=== PATIENT | male | born 1945 | race Caucasian/White ===

== ENCOUNTER → 2018-10-16 | Outpatient (CLI) | payer MEDICARE ==
[~2018-10-16] MED LIST: ACET-1966 PO; CEF300 PO; GUAI600T57 PO; IPRA4AER IH; MULT-1379 PO
== END ==
LOC: AMB 20:44
PROVIDERS: ATTEND Nurse Practitioner
DX: R41.82 Altered mental status, unspecified (principal); R07.9 Chest pain, unspecified; R05 Cough; R09.02 Hypoxemia; R53.1 Weakness
CPT/HCPCS: A0425; A0427

== ENCOUNTER 2018-10-21 13:20 | Inpatient (IN) | payer MEDICARE ==
[2018-10-21] MEDS ORDERED: MAG HYD/AL HYD/SIMETH 30ML UDC PO PRN (14:20)
[2018-10-21] MEDS ORDERED: ALBUTEROL 2.5 MG/3 ML NEB NEB PRN (18:15)
[2018-10-21] MEDS ORDERED: ACETAMINOPHEN 325 MG TAB PO PRN (18:15)
[2018-10-21] MEDS: COMBIVENT 4 GR INHALER IH SCH (18:30)
--- NOTE | 2018-10-21 19:52 | BHS - Psychiatric Evaluation ---
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 His head CT was WNL and he is no longer septic. He knows where he is and the date, but gives bizarre answers to questions, is tangential, is a poor historian, perseverates on biblical concepts and past experiences. He scored a 10/30 on the [facility] evaluation by with widespread cognitive linguistic deficits in the areas of attention, immediate memory, short-term memory, working memory, executive function, language and visuospatial skills. Disposition is complicated by the fact that he is homeless. 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 We have discussed with Dr. Crespo about the patient. He will be transferred to [facility] for continued care. " Admit due to SI or Attempt: No Suicide Plan: No Plan Alcohol or Drugs Involved: No Is Patient Info Reliable: No Is Collateral Info Reliable: Yes (3-81) Current Home Psych Meds: None at this time. Mental Status Exam General Appearance: Good Eye Contact, Unkept Speech: Rambling Mood: Euthymic Affect: Full and Appropriate Thought Process: Loose Associations Thought Content: Ideas of Reference (Believes his religiousity is the highest and most devout.) Cognition: Alert & Oriented-Person Memory: Immediate Insight Judgment: Poor Sleep: Normal Hallucinations: Denies Delusions: Grandiose (Aggrandizing), Ideas of reference Current Risk & History Current Dangerous Risk Assessm: Ubable to Care for Self Past Dangerous Risk Assessm: Other (None indicated at this time) Previous Suicide Attempt: No Previous Attempt (Denies) Previous Psychiatric Illness: Yes ([facility] physician believes patient may have been a baseline schizophrenic) Previous Psychiatric Treatment: Yes (Likely) Risk Assessment & Disposition Evaluated Risk Assessment: Patient is in need of full evaluation, and likely of stabilization to baseline. His thoughts are tangential and he makes irrelevant conversation. He seems to have little concern for his current state. He also seems to enjoy the social milieu of the unit. His speech is preoccupied with taoism and grandiose themes. He does not identify to this examiner a friend or family member who could attest to his level of independent function. He is transferred from the med/surg floor where his greater medical needs were addressed. Impression: Primary Impression: Altered mental status Meets Mental Illness Req.: Yes Meets Dangerousness Req.: Yes Emergency Mcfp to be: Upheld Decision Comment: Patient is homeless, unable to care for himself, and not connected with important resources like outpatient treatment. Date of Decision: Oct 21, 2018 Time of Decision: 19:52 Patient is Medically Stable at: Yes Disposition: [facility] Oct 21, 2018 19:52
[2018-10-21] MEDS ORDERED: guaiFENesin 600 MG TABCR PO SCH (21:00)
[2018-10-21] MEDS ORDERED: [UNRECOGNIZED DRUG - OTHER] TP SCH (21:00)
[2018-10-21] MEDS ORDERED: CEFDINIR 300 MG CAP PO SCH (21:00)
[2018-10-21] MEDS: CEFDINIR 300 MG CAP PO SCH (21:48)
[2018-10-21] MEDS: [UNRECOGNIZED DRUG - OTHER] TP SCH (21:48)
[2018-10-21] MEDS: guaiFENesin 600 MG TABCR PO SCH (21:48)
[2018-10-22] MEDS: COMBIVENT 4 GR INHALER IH SCH ×4 (05:42→18:20)
[2018-10-22 05:52] VITALS: BP 128/78
[2018-10-22] MEDS: guaiFENesin 600 MG TABCR PO SCH ×2 (08:48→22:03)
[2018-10-22] MEDS: CEFDINIR 300 MG CAP PO SCH ×2 (08:48→22:03)
[2018-10-22] MEDS: MULTIVITAMINS PO SCH (08:48)
[2018-10-22] MEDS: predniSONE 20 MG TAB PO SCH (08:48)
[2018-10-22] MEDS: [UNRECOGNIZED DRUG - OTHER] TP SCH (08:49)
[2018-10-22 10:00] VITALS: BP 140/70
[2018-10-22 14:05] VITALS: BP 124/72
[2018-10-22 20:09] VITALS: BP 124/70
[2018-10-23] MEDS: COMBIVENT 4 GR INHALER IH SCH ×4 (05:55→18:03)
[2018-10-23 06:18] VITALS: BP 133/79
[2018-10-23 08:10] VITALS: BP 118/74
[2018-10-23] MEDS: predniSONE 20 MG TAB PO SCH (08:47)
[2018-10-23] MEDS: guaiFENesin 600 MG TABCR PO SCH ×2 (08:47→21:53)
[2018-10-23] MEDS: MULTIVITAMINS PO SCH (08:47)
[2018-10-23] MEDS: CEFDINIR 300 MG CAP PO SCH ×2 (08:47→21:54)
--- NOTE | 2018-10-23 10:00 | Antimicrobial Stewardship ---
Antimicrobial Stewardship Comment See Antimicrobial Stewardship Note done on 10/17/18 on [id number] number. JUDY MENDOZA Oct 23, 2018 10:00
--- NOTE | 2018-10-23 11:50 | BHS Progress Note ---
S - Subjective Progress Notes Subjective Patient remains very polite on the unit, demonstrating an intact memory, remembering this patients first name from the day before, and accurately reporting recent interaction with nurse. Patient enjoys communicating with staff and re-canting past events in his life. Patient is tangential in co nversation, appetite and sleep good. No other concerns today. Likely grandiose delusional content ongoing. Patient does not want any psychiatric medications. Patient continues to recover from recent sepsis, prednisone tapering down. Patient in need of adequate housing and [place] living arrangement. Suicidal Ideation: None Homicidal Ideation: None [facility] - Objective Physical Exam Vital Signs Vital Signs Date Time Temp Pulse Resp B/P (MAP) Pulse Ox O2 Delivery O2 Flow Rate FiO2 10/23/18 06:18 97.0 91 133/79 (97) Nasal Cannula 4.0 70 10/22/18 14:05 18 94 Muscle Strength and Tone: WNL (improving) Gait and Station: Steady, Unsteady S Medications Reviewed: Side Effects, Benefits of Medication, Risks Allergies Reviewed: Yes Mental Status Exam General Appearance: Casual, Good Eye Contact, Cooperative, Polite, Good Interaction, Unkept; No Psychomotor Agitation, No Psychomotor Retardation, No Bizarre Mannerisms, No Tics Speech: Clear, Spontaneous, Normal Rate, Normal Rhythm, Normal Volume, Normal Tone, Rambling (less so today, remains tangential ) Mood: Euthymic Affect: Full and Appropriate, Calm; No Flat, No Withdrawn, No Tearful, No Anxious, No Agitated Thought Process: Goal Directed; No Loose Associations (tangential ), No Flight of Ideas Thought Content: No Suicidal Ideation, No Homicidal Ideation; Delusions (speaks of a religion woman, and recent rescue of infant, likely delsuional ); No Auditory Halllucinations, No Visual Hallucinations, No Thought Broadcasting; Ideas of Reference (Believes his religiousity is the highest and most devout.); No Obsessions, No Compulsions Sensorium: Clear Cognition: Alert & Oriented-Person, Alert & Oriented-Place, Alert & Oriented- Time, Gktlc-Xytxukeo-Nviuafsny (mostly) Memory: Immediate, Recent, Remote Intelligence: Average Insight Judgment: Poor (limited currently but improving as infection clears) [facility] Assessment and Plan Wptt-ex-Omfv Encounter Date: Oct 23, 2018 Pvtc-ox-Juyf Encounter Time: 11:00 [facility] Plan: Necessary Precautions Tobacco Medications: Started Multpiple Antipsychotics Used: No Problems: (1) Delusional disorder, grandiose type Optional Permanent Comment: grandiose themes, recovering from sepsis and prednisone, and hypoxic, potential implications from Last Edited By: Rick Sheppard on Oct 23, 2018 11:49 Status: Chronic (2) Personality disorder, unspecified Optional Permanent Comment: likely narcissistic and antisocial traits that are long standing. Last Edited By: Rick Sheppard on Oct 23, 2018 11:48 Status: Chronic Condition 1. continue treatment. 2. look for placement RICK SHEPPARD MD Oct 23, 2018 11:49
[2018-10-23 12:35] VITALS: BP 132/74
[2018-10-23 15:10] VITALS: BP 118/72
[2018-10-23 22:29] VITALS: BP 112/83
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
[2018-10-24 04:02] VITALS: BP 129/81
[2018-10-24] MEDS: COMBIVENT 4 GR INHALER IH SCH ×4 (06:01→17:26)
[2018-10-24 07:19] LABS: PLATELET COUNT, AUTOMATED 157 K/uL (150-450)
[2018-10-24] MEDS: predniSONE 10 MG TAB PO SCH (08:37)
[2018-10-24] MEDS: MULTIVITAMINS PO SCH (08:37)
[2018-10-24] MEDS: CEFDINIR 300 MG CAP PO SCH ×2 (08:37→22:06)
[2018-10-24] MEDS: guaiFENesin 600 MG TABCR PO SCH ×2 (08:37→22:06)
--- NOTE | 2018-10-24 10:18 | BHS Progress Note ---
BHS - Subjective Progress Notes Subjective Patient interacting well on the unit and respectful of care he is receiving here. Emergency custodial will be expiring tomorrow, and patient will be given the opportunity to sign in voluntarily to shore up effective discharge plan, as patient continues to state he wants to live in [place]. Patient may be suffe ring form some grandiosity and associated delusions, however patients current state does not represent a need of continued mental health hold. Mood stated okay, appetite good, sleep good, Suicidal Ideation: None Homicidal Ideation: None [facility] - Objective Physical Exam Vital Signs Vital Signs Date Time Temp Pulse Resp B/P (MAP) Pulse Ox O2 Delivery O2 Flow Rate FiO2 10/24/18 04:02 129/81 (97) 10/24/18 03:59 98.0 69 16 90 Non-Rebreather 3.0 Hematology Test 10/24/18 07:10 Red Blood Count 4.67 M/uL (4.00-5.60) Mean Corpuscular Volume 95.2 fL (80.0-96.0) Mean Corpuscular Hemoglobin 31.5 pg (26.0-33.0) Mean Corpuscular Hemoglobin Concent 33.1 g/dL (32.0-36.0) Red Cell Distribution Width 14.1 % (11.5-14.5) Mean Platelet Volume 9.7 fL (7.2-11.1) Neutrophils (%) (Auto) 69.8 % (39.4-72.5) Lymphocytes (%) (Auto) 19.6 % (17.6-49.6) Monocytes (%) (Auto) 8.0 % (4.1-12.4) Eosinophils (%) (Auto) 2.0 % (0.4-6.7) Basophils (%) (Auto) 0.6 % (0.3-1.4) Nucleated RBC Relative Count (auto) 0.0 /100WBC Neutrophils # (Auto) 8.2 K/uL (2.0-7.4) Lymphocytes # (Auto) 2.3 K/uL (1.3-3.6) Monocytes # (Auto) 0.9 K/uL (0.3-1.0) Eosinophils # (Auto) 0.2 K/uL (0.0-0.5) Basophils # (Auto) 0.1 K/uL (0.0-0.1) Nucleated RBC Absolute Count (auto) 0.00 K/uL Sodium Level 142 mmol/L (137-145) Potassium Level 3.9 mmol/L (3.5-5.0) Chloride Level 106 mmol/L (98-107) Carbon Dioxide Level 26 mmol/L (22-30) Blood Urea Nitrogen 19 mg/dl (9-21) Creatinine 0.70 mg/dl (0.66-1.25) Glomerular Filtration Rate Calc > 60.0 Random Glucose 93 mg/dl (75-110) Calcium Level 8.9 mg/dl (8.4-10.2) Magnesium Level 2.1 mg/dl (1.7-2.2) Total Bilirubin 0.6 mg/dl (0.2-1.3) Aspartate Amino Transf (AST/SGOT) 17 U/L (0-35) Alanine Aminotransferase (ALT/SGPT) 41 U/L (0-56) Alkaline Phosphatase 56 U/L (0-126) Total Protein 5.9 g/dl (6.3-8.2) Albumin 3.4 g/dl (3.5-5.0) Chemistry Test 10/24/18 07:10 White Blood Count 11.7 k/uL (4.5-11.0) Red Blood Count 4.67 M/uL (4.00-5.60) Hemoglobin 14.7 g/dL (14.0-18.0) Hematocrit 44.4 % (42.0-52.0) Mean Corpuscular Volume 95.2 fL (80.0-96.0) Mean Corpuscular Hemoglobin 31.5 pg (26.0-33.0) Mean Corpuscular Hemoglobin Concent 33.1 g/dL (32.0-36.0) Red Cell Distribution Width 14.1 % (11.5-14.5) Platelet Count 157 K/uL (150-450) Mean Platelet Volume 9.7 fL (7.2-11.1) Neutrophils (%) (Auto) 69.8 % (39.4-72.5) Lymphocytes (%) (Auto) 19.6 % (17.6-49.6) Monocytes (%) (Auto) 8.0 % (4.1-12.4) Eosinophils (%) (Auto) 2.0 % (0.4-6.7) Basophils (%) (Auto) 0.6 % (0.3-1.4) Nucleated RBC Relative Count (auto) 0.0 /100WBC Neutrophils # (Auto) 8.2 K/uL (2.0-7.4) Lymphocytes # (Auto) 2.3 K/uL (1.3-3.6) Monocytes # (Auto) 0.9 K/uL (0.3-1.0) Eosinophils # (Auto) 0.2 K/uL (0.0-0.5) Basophils # (Auto) 0.1 K/uL (0.0-0.1) Nucleated RBC Absolute Count (auto) 0.00 K/uL Glomerular Filtration Rate Calc > 60.0 Calcium Level 8.9 mg/dl (8.4-10.2) Magnesium Level 2.1 mg/dl (1.7-2.2) Total Bilirubin 0.6 mg/dl (0.2-1.3) Aspartate Amino Transf (AST/SGOT) 17 U/L (0-35) Alanine Aminotransferase (ALT/SGPT) 41 U/L (0-56) Alkaline Phosphatase 56 U/L (0-126) Total Protein 5.9 g/dl (6.3-8.2) Albumin 3.4 g/dl (3.5-5.0) Muscle Strength and Tone: WNL (improving) Gait and Station: Steady, Unsteady S Medications Reviewed: Side Effects, Benefits of Medication, Risks Allergies Reviewed: Yes Mental Status Exam General Appearance: Casual, Good Eye Contact, Cooperative, Polite, Good Interaction, Unkept; No Psychomotor Agitation, No Psychomotor Retardation, No Bizarre Mannerisms, No Tics Speech: Clear, Spontaneous, Normal Rate, Normal Rhythm, Normal Volume, Normal Tone, Rambling (less so today, remains tangential ) Mood: Euthymic Affect: Full and Appropriate, Calm; No Flat, No Withdrawn, No Tearful, No Anxious, No Agitated Thought Process: Goal Directed; No Loose Associations (tangential ), No Flight of Ideas Thought Content: No Suicidal Ideation, No Homicidal Ideation; Delusions (speaks of a yazidi woman, and recent rescue of infant, likely delsuional ); No Auditory Halllucinations, No Visual Hallucinations, No Thought Broadcasting; Ideas of Reference (Believes his religiousity is the highest and most devout.); No Obsessions, No Compulsions Sensorium: Clear Cognition: Alert & Oriented-Person, Alert & Oriented-Place, Alert & Oriented- Time, Crvvn-Kretiywc-Vsemmmhgh (mostly) Memory: Immediate, Recent, Remote Intelligence: Average Insight Judgment: Poor (limited currently but improving as infection clears) Result Diagram: 10/24/18 0710 10/24/18 0710 [facility] Assessment and Plan Svis-us-Puxu Encounter Date: Oct 24, 2018 Fqhn-ij-Gone Encounter Time: 09:00 [facility] Plan: Necessary Precautions Tobacco Medications: Started Multpiple Antipsychotics Used: No Problems: (1) Delusional disorder, grandiose type Optional Permanent Comment: grandiose themes, recovering from sepsis and prednisone, and hypoxic, potential implications from Last Edited By: Rick Sheppard on Oct 23, 2018 11:49 Status: Chronic (2) Personality disorder, unspecified Optional Permanent Comment: likely narcissistic and antisocial traits that are long standing. Last Edited By: Rick Sheppard on Oct 23, 2018 11:48 Status: Chronic Condition 1. continue to look for safe placement upon discharge. 2. patient will sign in voluntarily. 3. no medication changes, RICK SHEPPARD MD Oct 24, 2018 10:17
[2018-10-24 14:05] VITALS: BP 136/78
[2018-10-25 04:45] VITALS: BP 116/67
[2018-10-25] MEDS: COMBIVENT 4 GR INHALER IH SCH ×2 (05:50→09:45)
[2018-10-25] MEDS: guaiFENesin 600 MG TABCR PO SCH (08:06)
[2018-10-25] MEDS: CEFDINIR 300 MG CAP PO SCH (08:06)
[2018-10-25] MEDS: MULTIVITAMINS PO SCH (08:06)
[2018-10-25] MEDS: predniSONE 10 MG TAB PO SCH (08:06)
[2018-10-25] MEDS ORDERED: IPRA4AER IH (10:07)
[2018-10-25] MEDS ORDERED: GUAI600T57 PO (10:08)
[2018-10-25] MEDS ORDERED: CEF300 PO (10:09)
[2018-10-25] MEDS ORDERED: MULT-1379 PO (10:09)
[2018-10-25] MEDS ORDERED: ACET-1966 PO (10:11)
[2018-10-25] MEDS ORDERED: CEFDINIR 300 MG CAP PO SCH ×2 (21:00)
--- NOTE | 2018-10-26 23:36 | SCHAAF DISCHARGE ---
DATE OF ADMISSION: October 21, 2018 DATE OF DISCHARGE: October 25, 2018 ATTENDING PHYSICIAN Eduardo Crespo MD Patient was seen at approximately 0900 hours on 25 October 2018 for note concerning this dictation. FINAL DIAGNOSES 1. Personality disorder, unspecified. antisocial and narcissistic traits. 2. Rule out delusional disorder, grandiose type. 3. Patient recovering from recent pneumonia and sepsis and hypoxic condition. REASON FOR ADMISSION This is a 73-year-old male who was initially admitted to the medical floor and found to be altered mental status, pneumonia, and sepsis. Patient was treated from October 17 through October 21 there. He is a [facility] resident and homeless in [place]. Patient was then brought over under an emergency detainment, as altered mental status had not yet cleared, and patient continued to recover from medical concerns. Patient was brought to the Behavioral Health Unit on October 21 and discharged on October 25. Patient continued to improve, patient being overall logical, continued to gain strength. No gross psychotic features were seen, and patient was agreeable to discharging to [place]. Patient could live in a hotel there or visit a homeless correction. Patient did have some money as well, and patient would follow up in a warmer climate with lower elevation as well. PHYSICAL EXAMINATION Please see medical floor notes. Vital signs at the time of discharge from [facility]: Temperature 97.8, pulse 66, respiratory rate 15, blood pressure 116/67, and pulse oximetry 91% on nasal cannula at 3L. LABORATORY DATA CBC on 10/24/18 notable for white blood cells elevated at 11.7. CMP unremarkable. For other laboratory data, see electronic record. MENTAL STATUS EXAMINATION AT TIME OF DISCHARGE GENERAL APPEARANCE, BEHAVIOR AND ATTITUDE: This is an adequately groomed 73]-year-old male who looks about stated age. Patient interacting well with this provider and other treatment team staff, smiling at times. No psychomotor agitation or retardation. No bizarre mannerisms or tics. SPEECH: Within normal limits. Regular rate, rhythm, volume and tone. MOOD: Described as good. . AFFECT: Full and bright. THOUGHT PROCESSES: Logical and goal-directed, no loose associations or flight of ideas. THOUGHT CONTENT: Free of auditory or visual hallucinations, ideas of reference, thought broadcastings, delusions, obsessions or compulsions. Patient adamantly denying suicidal or homicidal ideation. SENSORIUM: Clear. COGNITION: Alert and oriented to person, place, time and situation. MEMORY: Immediate, recent and remote was estimated intact. INTELLIGENCE: Average, based on interview. INSIGHT AND JUDGMENT: Considered grossly intact and appropriate for outpatient management. RESULTS OF TESTING Imaging: See electronic record. Laboratory data: See above. CONSULTATIONS None. TREATMENT Patient received minimal medications and participated in individual and group therapy. HOSPITAL COURSE Overall, patient was pleasant and cooperative throughout his stay, noted to be very talkative in nature and liked to interact with others. Patient interacting in a seemingly grandiose manner; however, accepting of likelihood that person of interest that patient is pursuing in [place] does not live here. Patient agreed to go to [place] to follow up closely there with providers. CONDITION OF PATIENT ON DISCHARGE Stable. Considered a minimal risk to himself or others, and appropriate for outpatient care. DISPOSITION The patient was discharged to [place], where homeless correction exists. Patient had a bus ticket there. Patient would follow up with [facility] there. Avoid nicotine, alcohol, and illicit substances. Patient was given a three-day supply of medications, which included Omnicef, and five doses would be given before discontinuing, 300 mg twice a day. Patient could take [id number] Tylenol, multivitamin with minerals as needed, Mucinex as needed, and Combivent Respimat inhaled spray was given as well. Patient will remain on the nasal cannula oxygen at 3L currently at time of discharge. Risks, benefits, and alternatives of above discharge plan were discussed. Informed consent was obtained given to proceed with above discharge plan by this competent patient. COURTNEY
== END 2018-10-25 13:29 | disposition home or self-care (01) | DRG 883 ==
LOC: BHS 13:20
PROVIDERS: ADMIT Psychiatry & Neurology Psychiatry; ATTEND Psychiatry & Neurology Psychiatry
DX: F60.9 Personality disorder, unspecified (principal); F60.81 Narcissistic personality disorder; F22 Delusional disorders; Z72.811 Adult antisocial behavior; Z59.0 Homelessness
CPT/HCPCS: 36415; 82040; 82247; 82310; 82374; 82435; 82565; 82947; 83735; 84075; 84132; 84155; 84295; 84450; 84460; 84520; 85025; 94640; J3535; J7512

== ENCOUNTER 2019-02-20 11:18 | Emergency (ER) | payer MEDICARE ==
--- NOTE | 2019-02-20 11:23 | ER Report ---
History and Physical Time Seen By MD: 11:23 HPI/ROS CHIEF COMPLAINT: Left arm pain HISTORY OF PRESENT ILLNESS: Patient is a 73-year-old male who presents with a complaint of left arm pain. He states there is no traumatic injury. 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 He states the pain radiates from the shoulder to the wrist does not involve any of the fingers. Occasionally it will go numb. Patient was found to be 84% on room air. He does have a history of COPD and is supposed to be wearing oxygen. He denies any chest pain or fever or chills. He denies abdominal pain. REVIEW OF SYSTEMS: Respiratory: Cough, reports no dyspnea Cardiovascular: No chest pain, no palpitations. Gastrointestinal: No vomiting, no abdominal pain. Musculoskeletal: Left arm pain Allergies: Coded Allergies: No Known Drug Allergies (Unverified , 10/17/18) Home Meds Active Scripts Naproxen (NAPROXEN) 375 Mg Tablet, 375 MG PO TID for PAIN, #30 TAB 0 Refills Prov:ABISAI COLLINS MD 02/20/19 Discontinued Reported Medications Acetaminophen (TYLENOL) 325 Mg Tablet, 650 MG PO Q6H PRN for PAIN, TAB 10/25/18 Multivits,Th W-Fe,Other Min (THERA-M) 1 Each Tablet, 1 EACH PO QDAY 10/25/18 Cefdinir 300 Mg Cap (OMNICEF 300 MG CAP (OR EQUIV)) 300 Mg Cap, 300 MG PO BID, CAP TAKE UNTIL GONE 10/25/18 Guaifenesin (MUCINEX) 600 Mg Tablet.er, 600 MG PO BID 10/25/18 Ipratropium/Albuterol Sulfate (COMBIVENT RESPIMAT INHAL SPRAY) 4 Gm Aer.w.adap, 1 PUFF IH QID 10/25/18 Past Medical/Surgical History Past mental history for recent psychiatric admission in October 2018 for altered mental status also history of prior medical admission for sepsis and pneumonia. Hx Smoking: Yes Smoking Status: Former Smoker Exposure to Second Hand Smoke?: Yes Hx Alcohol Use: Yes Constitutional Physical Exam General Appearance: The patient is alert, has no immediate need for airway protection and no current signs of toxicity. Eyes: Pupils equal and round no injection. Respiratory: Chest is non-tender, lungs with bilateral rhonchi and wheezes. Cardiac: regular rate and rhythm [ ] Gastrointestinal: Abdomen is soft and non tender, no masses, bowel sounds normal. Musculoskeletal: Neck: Neck is supple and non tender. Extremities have full range of motion and are non tender. Skin: No rashes or lesions. [ ] Medical Decision Making Data Points Laboratory Hematology Test 02/20/19 11:57 Red Blood Count 5.05 M/uL (4.00-5.60) Mean Corpuscular Volume 91.9 fL (80.0-96.0) Mean Corpuscular Hemoglobin 30.3 pg (26.0-33.0) Mean Corpuscular Hemoglobin Concent 33.0 g/dL (32.0-36.0) Red Cell Distribution Width 14.7 % (11.5-14.5) Mean Platelet Volume 9.4 fL (7.2-11.1) Neutrophils (%) (Auto) 79.9 % (39.4-72.5) Lymphocytes (%) (Auto) 10.1 % (17.6-49.6) Monocytes (%) (Auto) 7.3 % (4.1-12.4) Eosinophils (%) (Auto) 1.7 % (0.4-6.7) Basophils (%) (Auto) 1.0 % (0.3-1.4) Nucleated RBC Relative Count (auto) 0.1 /100WBC Neutrophils # (Auto) 8.1 K/uL (2.0-7.4) Lymphocytes # (Auto) 1.0 K/uL (1.3-3.6) Monocytes # (Auto) 0.7 K/uL (0.3-1.0) Eosinophils # (Auto) 0.2 K/uL (0.0-0.5) Basophils # (Auto) 0.1 K/uL (0.0-0.1) Nucleated RBC Absolute Count (auto) 0.01 K/uL Sodium Level 137 mmol/L (137-145) Potassium Level 4.1 mmol/L (3.5-5.0) Chloride Level 102 mmol/L (98-107) Carbon Dioxide Level 27 mmol/L (22-30) Blood Urea Nitrogen 14 mg/dl (9-21) Creatinine 0.90 mg/dl (0.66-1.25) Glomerular Filtration Rate Calc > 60.0 Random Glucose 98 mg/dl (75-110) Calcium Level 8.7 mg/dl (8.4-10.2) Total Bilirubin 0.8 mg/dl (0.2-1.3) Aspartate Amino Transf (AST/SGOT) 18 U/L (0-35) Alanine Aminotransferase (ALT/SGPT) 22 U/L (0-56) Alkaline Phosphatase 73 U/L (0-126) Total Protein 7.2 g/dl (6.3-8.2) Albumin 4.4 g/dl (3.5-5.0) Chemistry Test 02/20/19 11:57 White Blood Count 10.1 k/uL (4.5-11.0) Red Blood Count 5.05 M/uL (4.00-5.60) Hemoglobin 15.3 g/dL (14.0-18.0) Hematocrit 46.4 % (42.0-52.0) Mean Corpuscular Volume 91.9 fL (80.0-96.0) Mean Corpuscular Hemoglobin 30.3 pg (26.0-33.0) Mean Corpuscular Hemoglobin Concent 33.0 g/dL (32.0-36.0) Red Cell Distribution Width 14.7 % (11.5-14.5) Platelet Count 190 K/uL (150-450) Mean Platelet Volume 9.4 fL (7.2-11.1) Neutrophils (%) (Auto) 79.9 % (39.4-72.5) Lymphocytes (%) (Auto) 10.1 % (17.6-49.6) Monocytes (%) (Auto) 7.3 % (4.1-12.4) Eosinophils (%) (Auto) 1.7 % (0.4-6.7) Basophils (%) (Auto) 1.0 % (0.3-1.4) Nucleated RBC Relative Count (auto) 0.1 /100WBC Neutrophils # (Auto) 8.1 K/uL (2.0-7.4) Lymphocytes # (Auto) 1.0 K/uL (1.3-3.6) Monocytes # (Auto) 0.7 K/uL (0.3-1.0) Eosinophils # (Auto) 0.2 K/uL (0.0-0.5) Basophils # (Auto) 0.1 K/uL (0.0-0.1) Nucleated RBC Absolute Count (auto) 0.01 K/uL Glomerular Filtration Rate Calc > 60.0 Calcium Level 8.7 mg/dl (8.4-10.2) Total Bilirubin 0.8 mg/dl (0.2-1.3) Aspartate Amino Transf (AST/SGOT) 18 U/L (0-35) Alanine Aminotransferase (ALT/SGPT) 22 U/L (0-56) Alkaline Phosphatase 73 U/L (0-126) Total Protein 7.2 g/dl (6.3-8.2) Albumin 4.4 g/dl (3.5-5.0) EKG/Imaging EKG Interpretation EKG shows normal sinus rhythm with left axis deviation. Monitor Interpretation: Normal Sinus Rhythm Imaging X-ray of cervical spine reveals mild arthritic changes without any evidence of bony abnormality. Chest X-rays unremarkable. ED Course/Re-evaluation ED Course 02/20/2019 11:48:32 am patient is here for left arm pain which sounds like a peripheral neuropathy. However patient was found to be hypoxic at 84% on room air. Lung exam was consistent with COPD bronchitis. Patient is supposed to be wearing oxygen continually but feels that he does not need it. Patient denies any chest pain or abdominal pain. Denies fevers chills denies headache. When this time will be EKG chest x-ray we will give a DuoNeb treatment along with IV site [place]. X-ray the chest x-ray of the cervical spine. Decision to Disposition Date: Feb 20, 2019 Decision to Disposition Time: 17:00 Depart Departure Latest Vital Signs Impression: Primary Impression: Cervical radicular pain Additional Impression: COPD exacerbation Condition: Improved Disposition: HOME OR SELF-CARE New Scripts Naproxen (NAPROXEN) 375 Mg Tablet 375 MG PO TID for PAIN, #30 TAB 0 Refills Prov: ABISAI COLLINS MD 02/20/19 Departure Forms: ER Transition Record, Home Oxygen, Nebulizer RX, Home Oxygen Company Chosen by Patient: Durable Medical Equipment-Oxygen: Oxygen Concentrator, Portable Oxygen Gas Reason for Use/Diagnosis: COPD Start Date of the Order: Feb 20, 2019 Dosage or Concentration (if applicable) - LPM: 4 Route of Administration (if applicable): Nasal Cannula Frequency of Use: Continuous Duration Home O2 Required: 90 Duration Units: Days Room Air Oxygen Saturation: 84 ER Prescribing Physician's Name: Abisai Collins NPI Numbers for Local ER MDs: Karina [id number] Medications Reconciliation, Patient Portal Information Patient Instructions: COPD (Chronic Obstructive Pulmonary Disease) (ED), Cervical Radiculopathy (ED) Problem Qualifiers ABISAI COLLINS MD Feb 20, 2019 11:23
[2019-02-20] MEDS ORDERED: KETOROLAC 15 MG/ML VIAL IVP ONE (11:40)
[2019-02-20] MEDS ORDERED: methylPREDNIS SUCC 125 MG/2ML IVP ONE (11:40)
[2019-02-20] MEDS ORDERED: ALBUTEROL/IPRATROPIUM 3 ML NEB NEB ONE (11:40)
[2019-02-20 12:06] LABS: PLATELET COUNT, AUTOMATED 190 K/uL (150-450)
--- NOTE | 2019-02-20 12:35 | EKG ---
FACILITY: [facility] PATIENT NAME: HAI ROBERT : [id number] MR: [id number] V: [id number] EXAM DATE: ORDERING PHYSICIAN: MALLY PÉREZ TECHNOLOGIST: ADRIAN Downs Reason : LEFT ARM PAIN Blood Pressure : / mmHG Vent. Rate : 091 BPM Atrial Rate : 091 BPM P-R Int : 198 ms QRS Dur : 104 ms QT Int : 354 ms P-R-T Axes : 046 -38 047 degrees QTc Int : 435 ms Sinus rhythm Borderline first degree AV block Left axis Poor R wave progression anteriorly Confirmed by SAMI LEWIS ([id number]) on 02/20/2019 4:51:54 PM Referred By: BETO Confirmed By:SAMI LEWIS
--- NOTE | 2019-02-20 12:54 | RADIOLOGY IMAGING REPORT ---
FACILITY: [facility] PATIENT NAME: Joe Bacon : 1945 MR: [id number] V: [id number] EXAM DATE: ORDERING PHYSICIAN: MALLY PÉREZ TECHNOLOGIST: Location: [facility] Patient: Joe Bacon : 1945 Visit/Account:[id number] Date of Sevice: 02/20/2019 Study: Frontal and lateral views of the chest Indication: Respiratory distress Comparison study: None Findings: PA and lateral views of the chest demonstrate no evidence of acute infiltrate. There is no evidence of pleural effusion. There is no evidence of pneumothorax. The mediastinal, cardiac, and diaphragmatic contours are unremarkable. The visualized bony structures are unremarkable. IMPRESSION: Unremarkable chest. Report Dictated By: Jose Bedoya at 02/20/2019 12:49 PM Report E-Signed By: Jose Bedoya at 02/20/2019 12:49 PM WSN:[id number]
--- NOTE | 2019-02-20 12:55 | RADIOLOGY IMAGING REPORT ---
FACILITY: [facility] PATIENT NAME: Joe Bacon : 1945 MR: [id number] V: [id number] EXAM DATE: ORDERING PHYSICIAN: MALLY PÉREZ TECHNOLOGIST: Location: [facility] Patient: Joe Bacon : 1945 Visit/Account:[id number] Date of Sevice: 02/20/2019 Study: CERVICAL SPINE 2 OR 3 VIEW Indication: Chronic This Comparison study: None available Findings: AP open mouth and lateral views of the cervical spine demonstrates no evidence of abnormali ty of the atlantoaxial articulation. There is normal alignment of the cervical vertebrae. There is no evidence of prevertebral soft tissue swelling. There is mild degenerative disease present. IMPRESSION: Mild degenerative disease. No evidence of acute bony abnormality. Report Dictated By: Jose Bedoya at 02/20/2019 12:49 PM Report E-Signed By: Jose Bedoya at 02/20/2019 12:50 PM WSN:[id number]
[2019-02-20] MEDS ORDERED: NAPR375T44 PO (12:59)
[2019-02-20] MEDS ORDERED: ALBUTEROL 8 GM INHALER INH ONE (13:00)
[2019-02-20 14:11] VITALS: BP 142/85
== END 2019-02-20 14:13 | disposition home or self-care (01) ==
LOC: ER 11:27
DX: M54.12 Radiculopathy, cervical region (principal); J44.1 Chronic obstructive pulmonary disease with (acute) exacerbation
CPT/HCPCS: 71046; 72040; 85025; 93005; 94640; 96374; 96375; 99284; J1885; J2930; J7620; 82040; 82247; 82310; 82374; 82435; 82565; 82947; 84075; 84132; 84155; 84295; 84450; 84460; 84520

== ENCOUNTER 2019-06-13 19:15 | Emergency (ER) | payer MEDICARE ==
[~2019-06-13 19:15] MED LIST changes: +NAPR375T44 PO
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
[2019-06-13] MEDS ORDERED: NS(*) 0.9% 1000 ML BAG 1,000 ML IV ONE (20:01)
[2019-06-13] MEDS ORDERED: ASPIRIN 81 MG CHEW PO ONE (20:05)
[2019-06-13 20:26] LABS: PLATELET COUNT, AUTOMATED 163 K/uL (150-450)
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
--- NOTE | 2019-06-13 21:21 | RADIOLOGY IMAGING REPORT ---
[place] [facility] [place] NAME: Joe Bacon : 1945 MR: [id number] V: [id number] EXAM DATE: ORDERING PHYSICIAN: JESSICA SARMIENTO TECHNOLOGIST: Location: [facility] [place] Patient: Joe Bacon : 1945 Visit/Account:[id number] Date of Sevice: 06/13/2019 Study: CT scan of the brain without intravenous contrast. Indication: Trauma Comparison study: October 16, 2018 Technique: Multiple axial images were obtained through the brain without the use of intravenous contr ast. One of the following dose optimization techniques was utilized in the performance of this exam: Autom ated exposure control; adjustment of the mA and/or kV according to the patient's size; or use of an i terative reconstruction technique. Specific details can be referenced in the facility's radiology C T exam operational policy. The examination demonstrates no evidence of acute intracranial hemorrhage. There is no evidence of ex tra-axial collection or hydrocephalus. There is no abnormal density identified within the brain parenchyma. There is no evidence of disruption of the peripheral lockwood-white junction. The bony structures are unremarkable. Incidental note is made of opacification of the visualized por tion of the left maxillary sinus. This is worsened as compared to the previous study. IMPRESSION:Unremarkable CT scan of the brain without contrast. Report Dictated By: Jose Bedoya at 06/13/2019 9:10 PM Report E-Signed By: Jose Bedoya at 06/13/2019 9:13 PM WSN:[id number]
[2019-06-13 21:30] VITALS: BP 106/82
[2019-06-13] MEDS ORDERED: AZIT-18 PO (21:37)
[2019-06-13] MEDS ORDERED: PRED20TA6 PO (21:37)
[2019-06-13] MEDS ORDERED: predniSONE 20 MG TAB PO ONE (21:40)
--- NOTE | 2019-06-13 23:54 | EKG ---
FACILITY: [facility] - [place] PATIENT NAME: HAI ROBERT : [id number] MR: [id number] V: [id number] EXAM DATE: ORDERING PHYSICIAN: JESSICA SARMIENTO TECHNOLOGIST: OSVALDO Test Reason : CP Blood Pressure : / mmHG Vent. Rate : 093 BPM Atrial Rate : 093 BPM P-R Int : 190 ms QRS Dur : 098 ms QT Int : 354 ms P-R-T Axes : 056 -39 065 degrees QTc Int : 440 ms Normal sinus rhythm Left axis deviation Abnormal ECG When compared with ECG of 20-FEB-2019 11:44, Previous ECG has undetermined rhythm, needs review Confirmed by SONIA BEDOYA ([id number]) on 06/14/2019 7:10:13 AM Referred By: Confirmed By:SONIA BEDOYA
== END 2019-06-13 22:08 | disposition home or self-care (01) ==
LOC: ER 20:00
DX: J44.1 Chronic obstructive pulmonary disease with (acute) exacerbation (principal); R07.89 Other chest pain; R05 Cough; W22.8XXA Striking against or struck by other objects, initial encounter
CPT/HCPCS: 36415; 70450; 71046; 80305; 81001; 83605; 84484; 85025; 87040; 87088; 93005; 96360; 96361; 99284; J7030; J7512; 82040; 82247; 82310; 82374; 82435; 82565; 82947; 84075; 84132; 84155; 84295; 84450; 84460; 84520

== ENCOUNTER 2019-06-15 23:43 | Emergency (ER) | payer MEDICARE ==
[~2019-06-15 23:43] MED LIST changes: -CEPH500T7 PO
--- NOTE | 2019-06-16 00:23 | ER Report ---
History and Physical Time Seen By MD: 23:43 Hx. of Stated Complaint: SEIZURE. POSTICTAL, PT URINATED HIS PANTS, CONBATIVE WITH EMS HPI/ROS CHIEF COMPLAINT: seizure HISTORY OF PRESENT ILLNESS: This is a 74 year old male. He had a seizure, witnessed by other people at the hotel where he stays. He was unresponsive for EMS, becoming combative and confused en route. Here is improving, and later able to talk with me. He has no memory of the event. He states that he has a history of seizures. He denies any pain. He denies any recent illness. He does not take medicine for his seizures and does drink alcohol regularly. He also has schizophrenia, and is not treated for this as well. Incontinent of urine REVIEW OF SYSTEMS: Constitutional: No fever or chills. Eyes: No vision changes. ENT: No sore throat. No congestion. Cardiovascular: No chest pain. No palpitations. Respiratory: No cough. No shortness of breath. Gastrointestinal: No abdominal pain. No nausea or vomiting. Genitourinary: No dysuria or trouble urinating. Musculoskeletal: No back pain. No extremity pain. Skin: No rashes. Neurological: No numbness. No weakness. Allergies: Coded Allergies: No Known Drug Allergies (Unverified , 06/15/19) Home Meds Active Scripts Azithromycin 250 Mg Tab (AZITHROMYCIN 250 MG TAB) 250 Mg Tablet, 1 TAB PO QDAY, #6 TAB Take 2 tabs today and then 1 tab a day until gone. Prov:JESSICA SARMIENTO 06/13/19 Prednisone (PREDNISONE) 20 Mg Tablet, 40 MG PO DAILY, #8 TAB Prov:JESSICA SARMIENTO 06/13/19 Naproxen (NAPROXEN) 375 Mg Tablet, 375 MG PO TID for PAIN, #30 TAB 0 Refills Prov:MALLY PÉREZ MD 02/20/19 Reviewed Nurses Notes: Yes Hx Smoking: Yes Smoking Status: Former Smoker Exposure to Second Hand Smoke?: Yes Hx Substance Use Disorder: Yes Hx Alcohol Use: Yes Constitutional Vital Sign - Last 24 Hours 06/15/19 06/15/19 06/16/19 06/16/19 23:44 23:47 00:00 00:13 Temp 97.9 Pulse 110 84 Resp 14 17 B/P (MAP) 130/72 130/72 (91) 103/63 (76) Pulse Ox 85 91 O2 Delivery Room Air 06/16/19 06/16/19 06/16/19 06/16/19 00:43 00:59 01:13 02:00 Pulse 94 Resp 18 18 B/P (MAP) 110/69 (83) 91/46 (61) Pulse Ox 91 99 06/16/19 02:30 Pulse 77 Resp 17 B/P (MAP) 100/58 (72) Pulse Ox 95 Intake and Output 06/15/19 06/15/19 06/16/19 15:03 23:03 07:03 Intake Total 1000 ml Balance 1000 ml Physical Exam General Appearance: The patient is initially confused, later appropriate although tired. No immediate need for airway protection. Eyes: Pupils are equal, round. Reactive to light. No pallor, injection or icterus. Extraocular movements are intact. ENT: Mucous membranes are moist. Normal oral mucosa. Posterior oropharynx is normal. Neck: Supple and non tender. Respiratory: Lungs are clear to auscultation. Cardiovascular: Regular rate and rhythm. No murmurs, gallops or rubs. Normal capillary refill. No edema. Gastrointestinal: Abdomen is soft and non tender. Nondistended. Normal active bowel sounds. Neurological: Alert and oriented x3 after waking up from post-ictal state. Cranial nerves II through XII show no acute deficits on my exam. No focal neurologic deficits in the extremities. Skin: Warm and dry. Musculoskeletal: Extremities are nontender. Full range of motion. No tenderness in palpation of the cervical, thoracic and lumbar spine. DIFFERENTIAL DIAGNOSIS: After history and physical exam, differential diagnosis was considered for a seizure including but not limited to electrolyte abnormality, alcohol withdrawal, medication noncompliance, head injury, and breakthrough seizure. Medical Decision Making Data Points Result Diagram: 06/16/19 0035 06/16/19 0035 Laboratory Hematology Test 06/16/19 00:35 White Blood Count 6.9 k/uL (4.5-11.0) Red Blood Count 4.70 M/uL (4.00-5.60) Hemoglobin 15.2 g/dL (14.0-18.0) Hematocrit 44.8 % (42.0-52.0) Mean Corpuscular Volume 95.4 fL (80.0-96.0) Mean Corpuscular Hemoglobin 32.4 pg (26.0-33.0) Mean Corpuscular Hemoglobin Concent 34.0 g/dL (32.0-36.0) Red Cell Distribution Width 14.4 % (11.5-14.5) Platelet Count 137 K/uL (150-450) L Mean Platelet Volume 9.6 fL (7.2-11.1) Neutrophils (%) (Auto) 74.1 % (39.4-72.5) H Lymphocytes (%) (Auto) 17.3 % (17.6-49.6) L Monocytes (%) (Auto) 6.5 % (4.1-12.4) Eosinophils (%) (Auto) 1.6 % (0.4-6.7) Basophils (%) (Auto) 0.5 % (0.3-1.4) Nucleated RBC Relative Count (auto) 0.1 /100WBC Neutrophils # (Auto) 5.1 K/uL (2.0-7.4) Lymphocytes # (Auto) 1.2 K/uL (1.3-3.6) L Monocytes # (Auto) 0.4 K/uL (0.3-1.0) Eosinophils # (Auto) 0.1 K/uL (0.0-0.5) Basophils # (Auto) 0.0 K/uL (0.0-0.1) Nucleated RBC Absolute Count (auto) 0.01 K/uL Chemistry Test 06/16/19 00:35 Sodium Level 138 mmol/L (137-145) Potassium Level 3.4 mmol/L (3.5-5.0) Chloride Level 105 mmol/L (98-107) Carbon Dioxide Level 23 mmol/L (22-30) Blood Urea Nitrogen 21 mg/dl (9-21) Creatinine 0.90 mg/dl (0.66-1.25) Glomerular Filtration Rate Calc > 60.0 Random Glucose 110 mg/dl (75-110) Calcium Level 8.8 mg/dl (8.4-10.2) Magnesium Level 2.0 mg/dl (1.7-2.2) Total Bilirubin 1.5 mg/dl (0.2-1.3) Aspartate Amino Transf (AST/SGOT) 28 U/L (0-35) Alanine Aminotransferase (ALT/SGPT) 30 U/L (0-56) Alkaline Phosphatase 57 U/L (0-126) Total Protein 6.6 g/dl (6.3-8.2) Albumin 4.1 g/dl (3.5-5.0) Toxicology Test 06/16/19 00:35 Serum Alcohol < 10 mg/dl Urinalysis Test 06/16/19 02:18 Urine Color Yellow Urine Clarity Clear Urine pH 5.0 pH (4.8-9.5) Urine Specific [place] 1.014 Urine Protein Negative mg/dL (NEGATIVE) Urine Glucose (UA) Negative mg/dL (NEGATIVE) Urine Ketones 20 mg/dL (NEGATIVE) Urine Blood Small (NEGATIVE) Urine Nitrite Negative (NEGATIVE) Urine Bilirubin Negative (NEGATIVE) Urine Urobilinogen Negative mg/dL (0.2-1.9) Urine Leukocyte Esterase Negative (NEGATIVE) Urine RBC 1 /HPF (0-2/HPF) Urine WBC 1 /HPF (0-5/HPF) Urine Squamous Epithelial Cells None /LPF (</=FEW) Urine Transitional Epithelial Cells Few /LPF (NONE-FEW) Urine Bacteria Negative /HPF (NONE-FEW) Urine Mucus None /HPF (NONE-FEW) EKG/Imaging Imaging EXAMINATION: CT Head without intravenous contrast HISTORY: Seizure. TECHNIQUE: Axial images were obtained from the skull base to the vertex without intravenous contrast. Sagittal and coronal reformatted images are also submitted. One of the following dose optimization techniques was utilized in the performance of this exam: Automated exposure control; adjustment of the mA a nd/or kV according to the patient's size; or use of an iterative reconstruction technique. Specific details can be referenced in the facility's radiology CT exam operational policy. COMPARISON: 06/13/2019. FINDINGS: Brain volume: Normal. Ventricles: Negative. Acute ischemic changes: None. Hemorrhage: None. Masses / edema: None. Floyd-white: Negative. White matter: Negative. Vessels: Negative. Extra-axial: Negative. Calvarium / skull base: Negative. Visualized sinuses / orbits: Mucosal thickening and hyperdensity completely filling the left maxillary sinus with thickened estrada. Hyperdensity may represent fungal colonization or inspissated secretions. Small cyst or polyp in the right maxillary sinus. Rightward nasal septal deviation. IMPRESSION: 1. No acute intracranial abnormality. 2. Chronic left maxillary sinusitis with hyperdense material centrally which may represent fungal colonization or inspissated secretions. Report Dictated By: Eric Prieto MD at 06/16/2019 1:18 AM ED Course/Re-evaluation Clinical Indication for ER IV: Hydration, IV Access ED Course Patient initially post-ictal, then improved. He does not want any further treatment, says he has had seizures in the past, but not on meds now. Also not taking medications for schizophrenia. He is alert and oriented now, but sleepy after seizure. He does allow lab testing and CT scan which are unremarkable. Decision to Disposition Date: Jun 16, 2019 Decision to Disposition Time: 03:52 Depart Departure Latest Vital Signs Vital Signs Date Time Temp Pulse Resp B/P (MAP) Pulse Ox O2 Delivery O2 Flow Rate FiO2 06/16/19 02:30 77 17 100/58 (72) 95 06/15/19 23:44 97.9 Room Air Impression: Primary Impression: Seizure Condition: Improved Disposition: HOME OR SELF-CARE Patient Instructions: New-Onset Seizure in Adults (ED) Additional Instructions: No abnormalities were found on evaluation tonight. We recommend follow-up with a neurologist for further evaluation. You can call the visiting physicians outpatient offices here at the hospital to schedule a visit when the neurologist will be here. BILL HERNANDEZ MD Jun 16, 2019 00:23
[2019-06-16] MEDS ORDERED: NS(*) 0.9% 1000 ML BAG 1,000 ML IV ONE (00:25)
[2019-06-16] MEDS ORDERED: LORazepam 2 MG/ML VIAL IVP ONE (00:25)
[2019-06-16 01:08] LABS: PLATELET COUNT, AUTOMATED 137 K/uL (150-450)
--- NOTE | 2019-06-16 01:37 | RADIOLOGY IMAGING REPORT ---
[place] [facility] [place] : 1945 MR: [id number] V: [id number] EXAM DATE: ORDERING PHYSICIAN: BILL HERNANDEZ TECHNOLOGIST: Location: [facility] Patient: Joe Bacon : 1945 Visit/Account:[id number] Date of Sevice: 06/16/2019 EXAMINATION: CT Head without intravenous contrast HISTORY: Seizure. TECHNIQUE: Axial images were obtained from the skull base to the vertex without intravenous contrast . Sagittal and coronal reformatted images are also submitted. One of the following dose optimization techniques was utilized in the performance of this exam: Autom ated exposure control; adjustment of the mA and/or kV according to the patient's size; or use of an i terative reconstruction technique. Specific details can be referenced in the facility's radiology C T exam operational policy. COMPARISON: 06/13/2019. FINDINGS: Brain volume: Normal. Ventricles: Negative. Acute ischemic changes: None. Hemorrhage: None. Masses / edema: None. Floyd-white: Negative. White matter: Negative. Vessels: Negative. Extra-axial: Negative. Calvarium / skull base: Negative. Visualized sinuses / orbits: Mucosal thickening and hyperdensity completely filling the left maxilla ry sinus with thickened estrada. Hyperdensity may represent fungal colonization or inspissated secretio ns. Small cyst or polyp in the right maxillary sinus. Rightward nasal septal deviation. IMPRESSION: 1. No acute intracranial abnormality. 2. Chronic left maxillary sinusitis with hyperdense material centrally which may represent fungal col onization or inspissated secretions. Report Dictated By: Eric Prieto MD at 06/16/2019 1:18 AM Report E-Signed By: Eric Prieto MD at 06/16/2019 1:29 AM WSN:[id number]
[2019-06-16 02:30] VITALS: BP 100/58
== END 2019-06-16 04:11 | disposition home or self-care (01) ==
LOC: ER 06-16 00:24
DX: R56.9 Unspecified convulsions (principal)
CPT/HCPCS: 70450; 81001; 83735; 85025; 96361; 96374; 99284; G0480; J2060; J7030; 80320; 82040; 82247; 82310; 82374; 82435; 82565; 82947; 84075; 84132; 84155; 84295; 84450; 84460; 84520

== ENCOUNTER → 2019-06-15 | Outpatient (CLI) | payer MEDICARE ==
[~2019-06-15] MED LIST changes: +AZIT-18 PO; +CEPH500T7 PO; +PRED20TA6 PO
== END ==
LOC: AMB 23:20
PROVIDERS: ATTEND Nurse Practitioner
DX: R40.4 Transient alteration of awareness (principal); R56.9 Unspecified convulsions
CPT/HCPCS: A0425; A0427

== ENCOUNTER → 2019-06-16 | Outpatient (CLI) | payer MEDICARE ==
[~2019-06-16] MED LIST changes: +CEPH500T7 PO
== END ==
LOC: AMB 04:02
PROVIDERS: ATTEND Nurse Practitioner
DX: R53.1 Weakness (principal); R09.02 Hypoxemia
CPT/HCPCS: A0425; A0428

== ENCOUNTER → 2019-06-18 | Outpatient (CLI) | payer MEDICARE | LOC: AMB 03:22 | PROVIDERS: ATTEND Nurse Practitioner | DX: R41.82 Altered mental status, unspecified (principal) | CPT/HCPCS: A0425; A0429 ==

== ENCOUNTER 2019-06-20 03:17 | Emergency (ER) | payer MEDICARE ==
[~2019-06-20 03:17] MED LIST changes: -CEPH500T7 PO
[2019-06-20] MEDS ORDERED: CEPHALEXIN MONO 500 MG CAP PO ONE (03:45)
[2019-06-20] MEDS ORDERED: NS(*) 0.9% 1000 ML BAG 1,000 ML IV ONE (03:45)
[2019-06-20 04:02] LABS: PLATELET COUNT, AUTOMATED 180 K/uL (150-450)
--- NOTE | 2019-06-20 04:24 | RADIOLOGY IMAGING REPORT ---
[place] [facility] [place] NAME: Joe Bacon : 1945 MR: [id number] V: [id number] EXAM DATE: ORDERING PHYSICIAN: MALLY JO TECHNOLOGIST: [place] [facility] [place] Patient: Joe Bacon : 1945 Visit/Account:[id number] Date of Sevice: 06/20/2019 CHEST SINGLE AP 06/20/2019 03:45 hours. HISTORY: Productive cough. Chills. COMPARISON: 06/13/2019 and studies dating to 10/16/2019. TECHNIQUE: Portable AP view of the chest. FINDINGS: TUBES/LINES/HARDWARE: None. PULMONARY/PLEURA: Lungs are clear. There is no pneumothorax or pleural effusion. CARDIOMEDIASTINAL: Cardiac and mediastinal silhouettes are within normal limits. BONES/SOFT TISSUES: No acute osseous abnormality. There are healed posterior fifth and sixth right ri bs. The visible abdomen is normal. IMPRESSION: 1. No acute cardiopulmonary process. Report Dictated By: More Flores at 06/20/2019 4:15 AM Report E-Signed By: More Flores at 06/20/2019 4:17 AM WSN:[id number]
--- NOTE | 2019-06-20 04:39 | ER Report ---
History and Physical Time Seen By MD: 03:20 Hx. of Stated Complaint: PT FOUND WALKING DOWN THE HIGHWAY NOT ACTING PROPERLY. INCONTINANT OF BOWEL, COUGH. PT APPEARS DISORIENTED BUT PLEASANT. PT STATES HE HAS A COUGH AND COPD HPI/ROS CHIEF COMPLAINT: Foot pain HISTORY OF PRESENT ILLNESS: 74-year-old male is a well known patient with schizophrenia who refuses medications for this, was found approximately one to 2 miles from his residence, picked up by EMS, stated he had gotten confused and lost, and complaining of foot pain. Patient was noted to have stool on legs and feet, was walking barefoot, and was without other complaints. He denies suicidal ideation. He complains only of the pain. He is noted to have a cough but denies shortness of breath, chest pain. He denies fevers. He denies abdominal pain or vomiting. REVIEW OF SYSTEMS: Constitutional: No fever, no chills. Eyes: no blurred vision ENT: No sore throat. Cardiovascular: No chest pain, no palpitations. Respiratory: above Gastrointestinal: No abdominal pain, no vomiting. Genitourinary: no dysuria; no bloody/black stool, pt cannot quantify frequency of diarrhea Musculoskeletal: No back pain. Skin: abrasion/rash on legs/feet Neurological: pt without complaints Remainder of the 14 system rev: Yes Allergies: Coded Allergies: No Known Drug Allergies (Unverified , 06/20/19) Home Meds Active Scripts Cephalexin 500 Mg Tab (KEFLEX 500 MG TAB) 500 Mg Tablet, 500 MG PO Q12H for 5 D ays, #10 TAB Prov:MALLY JO MD 06/20/19 Discontinued Scripts Azithromycin 250 Mg Tab (AZITHROMYCIN 250 MG TAB) 250 Mg Tablet, 1 TAB PO QDAY, #6 TAB Take 2 tabs today and then 1 tab a day until gone. Prov:JESSICA SARMIENTO 06/13/19 Prednisone (PREDNISONE) 20 Mg Tablet, 40 MG PO DAILY, #8 TAB Prov:JESSICA SARMIENTO 06/13/19 Naproxen (NAPROXEN) 375 Mg Tablet, 375 MG PO TID for PAIN, #30 TAB 0 Refills Prov:MALLY PÉREZ MD 02/20/19 Reviewed Nurses Notes: Yes Old Medical Records Reviewed: Yes Hx Smoking: Yes Smoking Status: Former Smoker Exposure to Second Hand Smoke?: Yes Hx Substance Use Disorder: Yes Hx Alcohol Use: Yes Constitutional Vital Sign - Last 24 Hours 06/20/19 06/20/19 06/20/19 06/20/19 03:17 03:19 03:19 03:52 Temp 98.2 Pulse ??? 105 107 Resp 14 B/P (MAP) 113/72 (86) 113/72 Pulse Ox 86 O2 Delivery Room Air 06/20/19 06/20/19 06/20/19 06/20/19 04:00 04:22 04:48 05:22 Pulse 104 ??? B/P (MAP) ???/??? (1665) 109/69 (82) Pulse Ox 91 Physical Exam General Appearance: The patient is alert, has no immediate need for airway protection and no signs of toxicity. He is oriented to person/place. He complains of irritation and pain left foot Eyes: Pupils equal and round no pallor or injection. ENT, Mouth: Mucous membranes are moist. Respiratory: There are no retractions, lungs are clear to auscultation. Occ nonproductive cough Cardiovascular: Regular rate and rhythm. no m/r/g Gastrointestinal: Abdomen is soft and non tender, no masses, bowel sounds normal. Neurological: alert, awake, follows commands Skin: erythema, abrasions to left mid thigh, left heel/plantar surface of foot without e/o cellulitis, without foreign body. Legs initially caked with stool; this is cleaned thoroughly and no further abrasions/lacerations noted. Musculoskeletal: Extremities are nontender, nonswollen and have full range of motion except as above. Soft compartments throughout. DIFFERENTIAL DIAGNOSIS: After history and physical exam differential diagnosis was considered for cellulitis, rhabdo, sepsis, suicidal ideation, intoxication, or other emergent cause of symptoms. Medical Decision Making Data Points Result Diagram: 06/20/19 0349 06/20/19 0349 Laboratory Hematology Test 06/20/19 03:49 White Blood Count 16.0 k/uL (4.5-11.0) H Red Blood Count 5.14 M/uL (4.00-5.60) Hemoglobin 16.7 g/dL (14.0-18.0) Hematocrit 49.7 % (42.0-52.0) Mean Corpuscular Volume 96.7 fL (80.0-96.0) H Mean Corpuscular Hemoglobin 32.5 pg (26.0-33.0) Mean Corpuscular Hemoglobin Concent 33.6 g/dL (32.0-36.0) Red Cell Distribution Width 14.8 % (11.5-14.5) H Platelet Count 180 K/uL (150-450) Mean Platelet Volume 9.6 fL (7.2-11.1) Neutrophils (%) (Auto) 87.7 % (39.4-72.5) H Lymphocytes (%) (Auto) 7.2 % (17.6-49.6) L Monocytes (%) (Auto) 3.8 % (4.1-12.4) L Eosinophils (%) (Auto) 0.7 % (0.4-6.7) Basophils (%) (Auto) 0.6 % (0.3-1.4) Nucleated RBC Relative Count (auto) 0.0 /100WBC Neutrophils # (Auto) 14.0 K/uL (2.0-7.4) H Lymphocytes # (Auto) 1.1 K/uL (1.3-3.6) L Monocytes # (Auto) 0.6 K/uL (0.3-1.0) Eosinophils # (Auto) 0.1 K/uL (0.0-0.5) Basophils # (Auto) 0.1 K/uL (0.0-0.1) Nucleated RBC Absolute Count (auto) 0.00 K/uL Chemistry Test 06/20/19 03:49 Sodium Level 144 mmol/L (137-145) Potassium Level 3.5 mmol/L (3.5-5.0) Chloride Level 104 mmol/L (98-107) Carbon Dioxide Level 26 mmol/L (22-30) Blood Urea Nitrogen 22 mg/dl (9-21) Creatinine 1.00 mg/dl (0.66-1.25) Glomerular Filtration Rate Calc > 60.0 Random Glucose 97 mg/dl (75-110) Calcium Level 9.9 mg/dl (8.4-10.2) Total Bilirubin 1.3 mg/dl (0.2-1.3) Aspartate Amino Transf (AST/SGOT) 28 U/L (0-35) Alanine Aminotransferase (ALT/SGPT) 27 U/L (0-56) Alkaline Phosphatase 65 U/L (0-126) Total Protein 7.8 g/dl (6.3-8.2) Albumin 4.7 g/dl (3.5-5.0) Urinalysis Test 06/20/19 04:15 Urine Color [place] Urine Clarity Cloudy Urine pH 5.0 pH (4.8-9.5) Urine Specific [place] 1.026 Urine Protein 100 mg/dL (NEGATIVE) Urine Glucose (UA) Negative mg/dL (NEGATIVE) Urine Ketones 20 mg/dL (NEGATIVE) Urine Blood Large (NEGATIVE) Urine Nitrite Negative (NEGATIVE) Urine Bilirubin Negative (NEGATIVE) Urine Urobilinogen 2.0 mg/dL (0.2-1.9) Urine Leukocyte Esterase Trace (NEGATIVE) Urine RBC 12 /HPF (0-2/HPF) Urine WBC 34 /HPF (0-5/HPF) Urine Squamous Epithelial Cells Many /LPF (</=FEW) Urine Transitional Epithelial Cells Moderate /LPF (NONE-FEW) Urine Bacteria Negative /HPF (NONE-FEW) Urine Hyaline Casts Moderate /LPF (NONE-FEW) Urine Mucus Few /HPF (NONE-FEW) ED Course/Re-evaluation ED Course 74 y/o m known untreated schizophrenia bib ems after police noted him wandering. MS appears to be baseline and pt does nto appear to be overt harm/threat to himself, but he does have findings concerning for risk of bact infection given contaminated with stool and open abrasions on ankle. Cleaned very well, given ivf as pt appears slightly dehydrated; will give prophylactic abx given findings on exam. Considered but doubt other emergent cause of findings. As pt just moved from [facility] to [facility]? it is likely he became disoriented due to new residence. It is reasonable for d/c with return precautions. Pt agrees to this. He is escprted to new residence by police. Decision to Disposition Date: Jun 20, 2019 Decision to Disposition Time: 04:34 Depart Departure Latest Vital Signs Vital Signs Date Time Temp Pulse Resp B/P (MAP) Pulse Ox O2 Delivery O2 Flow Rate FiO2 06/20/19 05:22 ??? 06/20/19 04:48 109/69 (82) 06/20/19 04:22 91 06/20/19 03:19 98.2 14 Room Air Impression: Primary Impression: Diarrhea Additional Impression: Abrasions of multiple sites Condition: Improved Disposition: HOME OR SELF-CARE New Scripts Cephalexin 500 Mg Tab (KEFLEX 500 MG TAB) 500 Mg Tablet 500 MG PO Q12H for 5 Days, #10 TAB Prov: MALLY JO MD 06/20/19 Patient Instructions: Abrasion (ED), Acute Diarrhea (ED) Additional Instructions: It is very important that you take the antibiotics as prescribed and get your prescription filled to continue on antibiotics to prevent infection in your foot. Please come back if you have any concerns or questions about your health or safety. Problem Qualifiers Primary Impression: Diarrhea Diarrhea type: unspecified type Qualified Codes: R19.7 - Diarrhea, unspecified MALLY JO MD Jun 20, 2019 04:39
[2019-06-20] MEDS ORDERED: CEPH500T7 PO (04:40)
[2019-06-20] MEDS ORDERED: CEPHALEXIN 500 MG CAP TH 2 CAP/BOTTLE PO ONE (04:40)
[2019-06-20 04:48] VITALS: BP 109/69
== END 2019-06-20 06:04 | disposition home or self-care (01) ==
LOC: ER 03:21
DX: R19.7 Diarrhea, unspecified (principal); S70.312A Abrasion, left thigh, initial encounter; S90.812A Abrasion, left foot, initial encounter
CPT/HCPCS: 71045; 81001; 85025; 99283; A9270; J7030; 82040; 82247; 82310; 82374; 82435; 82565; 82947; 84075; 84132; 84155; 84295; 84450; 84460; 84520

== ENCOUNTER → 2019-06-20 | Outpatient (CLI) | payer MEDICARE | LOC: AMB 02:43 | PROVIDERS: ATTEND Nurse Practitioner | DX: R41.82 Altered mental status, unspecified (principal) | CPT/HCPCS: A0425; A0429 ==

== ENCOUNTER 2019-06-21 11:51 | Emergency (ER) | payer MEDICARE ==
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
[2019-06-21] MEDS ORDERED: NS(*) 0.9% 1000 ML BAG 1,000 ML IV ONE (12:13)
--- NOTE | 2019-06-21 12:30 | EKG ---
FACILITY: [facility] - [place] PATIENT NAME: HAI ROBERT : [id number] MR: [id number] V: [id number] EXAM DATE: ORDERING PHYSICIAN: MARIA ANTONIA SCALES TECHNOLOGIST: ADRIAN Downs Reason : Blood Pressure : / mmHG Vent. Rate : 099 BPM Atrial Rate : 099 BPM P-R Int : 186 ms QRS Dur : 094 ms QT Int : 362 ms P-R-T Axes : 058 -33 059 degrees QTc Int : 464 ms Sinus rhythm Left axis Poor R wave progression anterior leads Abnormal ECG When compared with ECG of 13-JUN-2019 19:58, No significant change was found Confirmed by SAMI LEWIS ([id number]) on 06/21/2019 1:32:00 PM Referred By: Confirmed By:SAMI LEWIS
[2019-06-21 12:34] LABS: PLATELET COUNT, AUTOMATED 181 K/uL (150-450)
[2019-06-21] MEDS ORDERED: CEPHALEXIN 250 MG PO ONE (13:00)
[2019-06-21] MEDS ORDERED: [UNRECOGNIZED DRUG - OTHER] PO ONE (13:00)
[2019-06-21] MEDS ORDERED: CEPHALEXIN 500 MG CAP TH 2 CAP/BOTTLE PO ONE (13:10)
[2019-06-21] MEDS ORDERED: CEPHALEXIN MONO 500 MG CAP PO ONE (13:10)
--- NOTE | 2019-06-21 13:21 | RADIOLOGY IMAGING REPORT ---
[place] [facility] [place] NAME: Joe Bacon : 1945 MR: [id number] V: [id number] EXAM DATE: ORDERING PHYSICIAN: MARIA ANTONIA SCALES TECHNOLOGIST: Location: [facility] Patient: Joe Bacon : 1945 Visit/Account:[id number] Date of Sevice: 06/21/2019 ACUTE ABDOMEN SERIES 3 VIEW COMPARISON: None. HISTORY: epigastric pain Chest findings: CARDIAC/VASC: No cardiac silhouette abnormality or cardiomegaly. Unremarkable pulmonary vasculatu re. MEDIASTINUM: No visible mass or adenopathy. LUNGS/PLEURA: No pneumothorax. No significant pulmonary parenchymal abnormalities. No effusion or p leural thickening. BONES: No fracture or visible bony lesion. OTHER:Negative. Abdomen findings: BOWEL GAS PATTERN: Unremarkable. No abnormal dilation or deviation. Mild stool in the projection o f the ascending colon. Gas in the rest of the colon including the rectum. SOFT TISSUES: No masses or organomegaly. CALCIFICATIONS: Granulomatous calcifications in the spleen. No radiopaque urinary tract calculi. BONES: Degenerative changes in the lumbar spine.No fractures or suspicious osseous lesions. OTHER: Negative. No abnormal gaseous collections. IMPRESSION: 1. Normal bowel gas pattern. 2. No acute cardiopulmonary process. 3. 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 Report Dictated By: Eduardo Grimaldo at 06/21/2019 1:09 PM Report E-Signed By: Eduardo Grimaldo at 06/21/2019 1:11 PM WSN:[id number]
[2019-06-21 13:30] VITALS: BP 110/75
== END 2019-06-21 14:17 | disposition home or self-care (01) ==
LOC: ER 12:15
DX: F20.9 Schizophrenia, unspecified (principal); R10.84 Generalized abdominal pain; R79.89 Other specified abnormal findings of blood chemistry; R94.31 Abnormal electrocardiogram [ECG] [EKG]
CPT/HCPCS: 74022; 80305; 83735; 84443; 84484; 85025; 93005; 96372; 99284; A9270; G0480; J7030; 80320; 80329; 82040; 82247; 82310; 82374; 82435; 82565; 82947; 84075; 84132; 84155; 84295; 84450; 84460; 84520; 96360

== ENCOUNTER 2019-06-21 16:32 | Emergency (ER) | payer MEDICARE ==
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
[2019-06-21 16:38] VITALS: BP 112/64
== END 2019-06-21 18:12 | disposition home or self-care (01) ==
LOC: ER 16:36
DX: E86.0 Dehydration (principal); F20.9 Schizophrenia, unspecified
CPT/HCPCS: 81001; 83935; 87088; 99282

== ENCOUNTER → 2019-06-21 | Outpatient (CLI) | payer MEDICARE ==
[~2019-06-21] MED LIST changes: +CEPH500T7 PO
== END ==
LOC: AMB 16:03
PROVIDERS: ATTEND Nurse Practitioner
DX: R41.82 Altered mental status, unspecified (principal); E86.0 Dehydration; R05 Cough
CPT/HCPCS: A0425; A0427

== ENCOUNTER 2019-06-23 02:26 | Emergency (ER) | payer MEDICARE ==
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
[2019-06-23] MEDS ORDERED: CEPHALEXIN MONO 500 MG CAP PO ONE (03:20)
[2019-06-23] MEDS ORDERED: CEPHALEXIN 500 MG CAP TH 2 CAP/BOTTLE PO ONE (03:20)
[2019-06-23 03:30] VITALS: BP 95/65
== END 2019-06-23 04:10 | disposition home or self-care (01) ==
LOC: ER 02:26
DX: L03.116 Cellulitis of left lower limb (principal); F10.120 Alcohol abuse with intoxication, uncomplicated
CPT/HCPCS: 99283; A9270

== ENCOUNTER → 2019-06-23 | Outpatient (CLI) | payer MEDICARE | LOC: AMB 06-22 01:11 | PROVIDERS: ATTEND Nurse Practitioner | DX: R41.82 Altered mental status, unspecified (principal); R05 Cough; F10.129 Alcohol abuse with intoxication, unspecified | CPT/HCPCS: A0425; A0429 ==

== ENCOUNTER 2019-06-29 11:20 | Inpatient (IN) | payer MEDICARE ==
--- NOTE | 2019-06-29 11:31 | ER Report ---
History and Physical Time Seen By MD: 11:27 HPI/ROS CHIEF COMPLAINT: altered mental status HISTORY OF PRESENT ILLNESS: Patient is a 74 year old male presenting to ED with altered mental status. Complains of pain all over in his chest and abdomen. States he forgot to take his meds today but couldn't state what meds. States he had some alcohol today but could not say how much or when. Not able to consult with the provider. REVIEW OF SYSTEMS: Respiratory: No cough, no dyspnea. Cardiovascular: chest pain, no palpitations. Gastrointestinal: No vomiting, abdominal pain. Musculoskeletal: No back pain. Allergies: Coded Allergies: No Known Drug Allergies (Unverified , 06/21/19) Home Meds No Active Prescriptions or Reported Meds Past Medical/Surgical History Past medical history of seizures, angina, asthma, pneumonia, GERD, BPH, arthritis, right wrist fracture, substance abuse, alcohol abuse, schizphrenia surgical history of tonsillectomy, hernia x2, prostate surgery, adenoidectomy No pertinent family history Reviewed Nurses Notes: Yes Hx Smoking: Yes Smoking Status: Former Smoker Exposure to Second Hand Smoke?: Yes Hx Substance Use Disorder: Yes Hx Alcohol Use: Yes Constitutional Vital Sign - Last 24 Hours 06/29/19 06/29/19 06/29/19 06/29/19 11:24 11:27 11:40 12:00 Temp 97.2 Pulse 116 116 120 Resp 18 12 35 B/P (MAP) 132/85 (101) 135/85 Pulse Ox 85 92 92 O2 Delivery Room Air 06/29/19 06/29/19 06/29/19 06/29/19 12:20 12:40 13:00 13:00 Pulse 119 111 107 107 Resp 17 18 16 16 Pulse Ox 94 95 95 95 06/29/19 06/29/19 06/29/19 06/29/19 13:20 14:11 14:16 14:36 Pulse 102 101 104 Resp 23 B/P (MAP) 104/61 (75) Pulse Ox 95 94 94 06/29/19 06/29/19 06/29/19 06/29/19 14:56 15:16 15:36 15:37 Pulse 103 103 105 105 Pulse Ox 91 91 06/29/19 06/29/19 06/29/19 06/29/19 15:57 16:17 16:37 16:57 Pulse 103 105 103 105 Physical Exam General Appearance: The patient is alert, has no immediate need for airway protection and no current signs of toxicity. Eyes: Pupils equal and round no injection, EOMI Respiratory: Chest is non tender, lungs are clear to auscultation. Cardiac: regular rate and rhythm, mo murmurs Gastrointestinal: Abdomen is soft, generalize tender, no masses, bowel sounds normal. Musculoskeletal: Neck: Neck is supple and non tender. Extremities have full range of motion and are non tender. Skin: No rashes or lesions. DIFFERENTIAL DIAGNOSIS: After history and physical exam differential diagnosis was considered for dehydration, alcohol intoxication, UTI, seizure, head injury Medical Decision Making Data Points Result Diagram: 06/29/19 1139 06/29/19 1139 Laboratory Hematology Test 06/29/19 11:39 White Blood Count 12.8 k/uL (4.5-11.0) H Red Blood Count 5.26 M/uL (4.00-5.60) Hemoglobin 17.1 g/dL (14.0-18.0) Hematocrit 50.6 % (42.0-52.0) Mean Corpuscular Volume 96.2 fL (80.0-96.0) H Mean Corpuscular Hemoglobin 32.5 pg (26.0-33.0) Mean Corpuscular Hemoglobin Concent 33.7 g/dL (32.0-36.0) Red Cell Distribution Width 14.7 % (11.5-14.5) H Platelet Count 212 K/uL (150-450) Mean Platelet Volume 10.5 fL (7.2-11.1) Neutrophils (%) (Auto) 87.1 % (39.4-72.5) H Lymphocytes (%) (Auto) 4.2 % (17.6-49.6) L Monocytes (%) (Auto) 8.5 % (4.1-12.4) Eosinophils (%) (Auto) 0.1 % (0.4-6.7) L Basophils (%) (Auto) 0.1 % (0.3-1.4) L Nucleated RBC Relative Count (auto) 0.1 /100WBC Neutrophils # (Auto) 11.2 K/uL (2.0-7.4) H Lymphocytes # (Auto) 0.5 K/uL (1.3-3.6) L Monocytes # (Auto) 1.1 K/uL (0.3-1.0) H Eosinophils # (Auto) 0.0 K/uL (0.0-0.5) Basophils # (Auto) 0.0 K/uL (0.0-0.1) Nucleated RBC Absolute Count (auto) 0.01 K/uL Chemistry Test 06/29/19 11:39 06/29/19 12:14 06/29/19 15:55 Sodium Level 146 mmol/L (137-145) Potassium Level 3.1 mmol/L (3.5-5.0) Chloride Level 106 mmol/L (98-107) Carbon Dioxide Level 24 mmol/L (22-30) Blood Urea Nitrogen 35 mg/dl (9-21) Creatinine 1.20 mg/dl (0.66-1.25) Glomerular Filtration Rate Calc 59.3 Random Glucose 199 mg/dl (75-110) Calcium Level 10.0 mg/dl (8.4-10.2) Magnesium Level 2.0 mg/dl (1.7-2.2) Total Bilirubin 1.5 mg/dl (0.2-1.3) Aspartate Amino Transf (AST/SGOT) 50 U/L (0-35) Alanine Aminotransferase (ALT/SGPT) 71 U/L (0-56) Alkaline Phosphatase 138 U/L (0-126) Total Protein 8.1 g/dl (6.3-8.2) Albumin 4.5 g/dl (3.5-5.0) Thyroid Stimulating Hormone (TSH) 1.07 uIU/ml (0.46-4.68) Ammonia < 9 UMOL/L (9-33) Troponin I < 0.012 ng/ml Lactate 1.3 mmol/L (0.7-2.1) Toxicology Test 06/29/19 11:39 06/29/19 12:06 Acetaminophen Level < 10 ug/ml Serum Alcohol < 10 mg/dl Urine Opiates Screen Negative Urine Barbiturates Screen Negative Ur Tricyclic Antidepressants Screen Negative Urine Phencyclidine Screen Negative Urine Amphetamines Screen Negative Urine Benzodiazepines Screen Negative Urine Cocaine Screen Negative Urine Cannabinoids Screen Negative Urinalysis Test 06/29/19 12:06 Urine Color Carmen Urine Clarity Cloudy Urine pH 5.0 pH (4.8-9.5) Urine Specific [place] 1.024 Urine Protein 30 mg/dL (NEGATIVE) Urine Glucose (UA) Negative mg/dL (NEGATIVE) Urine Ketones 20 mg/dL (NEGATIVE) Urine Blood Moderate (NEGATIVE) Urine Nitrite Negative (NEGATIVE) Urine Bilirubin Negative (NEGATIVE) Urine Urobilinogen 4.0 mg/dL (0.2-1.9) Urine Leukocyte Esterase Small (NEGATIVE) Urine RBC 13 /HPF (0-2/HPF) Urine WBC 51 /HPF (0-5/HPF) Urine Squamous Epithelial Cells Many /LPF (</=FEW) Urine Bacteria Negative /HPF (NONE-FEW) Urine Hyaline Casts Few /LPF (NONE-FEW) Urine Mucus Few /HPF (NONE-FEW) EKG/Imaging Imaging CHEST SINGLE AP INDICATION: CP COMPARISON: 06/20/2019 FINDINGS: Heart size within normal limits. There is no focal infiltrate or lobar consolidation. There are stable coarsened interstitial markings at the lung bases. There is no pneumothorax or pleural effusion. IMPRESSION: 1. No acute cardiopulmonary process. Report Dictated By: Henok Chung at 06/29/2019 12:58 PM Report E-Signed By: Henok Chung at 06/29/2019 1:00 PM WSN:[facility] CT Head without contrast Indication: Altered mental status. Comparison: 06/16/2019. Technique: Axial CT images were obtained through the brain from the skull base to the vertex without administration of IV contrast. Reformatted coronal and sagittal images were also obtained. One of the following dose optimization techniques was utilized in the performance of this exam: automated exposure control; adjustment of the mA and/or kV according to the patient's size; or use of an iterative reconstruction technique. Specific details can be referenced in the facility's radiology CT exam operational policy. Findings: No evidence of mass, mass effect, or midline shift. No acute intracranial hemorrhage or acute territorial infarction. No extra-axial fluid collection or hydrocephalus. Age-related cerebral atrophy. Mild periventricular white matter ischemic changes consistent small vessel disease. Floyd/white matter differentiation appears normal. Bony structures show no fractures or lesions. There is again complete opacification of the left maxillary sinus with heterogeneous density consistent chronic sinus disease. A small cyst/polyp is again seen along the medial wall of the right maxillary sinus. The remaining sinuses and mastoids visualized are clear. IMPRESSION: 1. Continued mild senescent changes without acute abnormality. 2. Continued bilateral maxillary sinus disease, left greater than right. Report Dictated By: Joe Perkins at 06/29/2019 2:44 PM Report E-Signed By: Joe Perkins at 06/29/2019 2:49 PM WSN:[id number] CT abdomen and pelvis with IV contrast Indication: Abdominal pain. Comparison: None available. . Technique: Axial CT images were obtained through the abdomen and pelvis during injection of nonionic iodinated intravenous contrast. Reformatted coronal and sagittal images were also obtained. One of the following dose optimization techniques was utilized in the performance of this exam: Automated exposure control; adjustment of the mA and/or kV according to the patient's size; or use of an iterative reconstruction technique. Specific details can be referenced in the facility's radiology CT exam operational policy. Contrast: 75 ml of Isovue-370 IV contrast. Findings: Lower lung carrasquillo: Mild bibasilar atelectasis, right greater than left. Otherwise clear. Liver: No focal parenchymal abnormality of the liver. Biliary: Gallbladder appears unremarkable as well as the intra and extra hepatic biliary system. Pancreas: No focal abnormality. Spleen: Calcified granulomas, otherwise no focal abnormality. Adrenal glands: Unremarkable. Kidneys / retroperitoneum: No evidence of nephrolithiasis or hydronephrosis in each kidney shows a dominant cyst with a couple tiny cysts. The right renal cyst measures 3.1 cm and the left renal cyst measures 1.6 cm. Bowel / peritoneum / mesenteries: Diverticula seen along the sigmoid colon without pericolonic inflammation. The colon shows no other focal normality. The appendix is normal. Small bowel shows no focal abnormality or obstruction. The stomach is decompressed and grossly normal. No free air, free fluid, fluid collections or areas of inflammation. Small umbilical hernia containing fat. Lymph node assessment: No pathologic adenopathy identified. Pelvic structures: Prostate is heterogeneous and enlarged without discrete focal lesion. This causes significant impression to the urinary bladder. The urinary bladder shows no other focal normality. The remaining pelvic structures visualized within normal limits. Vessels: The infrarenal abdominal aorta does show mild aneurysmal dilatation measuring up to 2.6 x 3.5 cm with atherosclerotic calcific changes and medial chronic thrombus. The inferior portion of the aneurysm does abut up against the IVC without focal normality. The patent lumen measures 2.2 x 1.9 cm. No periaortic inflammation or fluid. The proximal right iliac artery does show a focal aneurysmal dilatation measuring 3.1 x 3.1 cm with a patent lumen on the lateral aspect measuring 1.8 x 1.2 cm. No surrounding inflammation or fluid. The abdominal aortic aneurysm extends for approximately 4.7 cm and the right iliac aneurysm extends for approximately 3.5 cm. No other aneurysms are identified. Musculoskeletal / Body wall: No acute or aggressive osseous abnormality. Degenerative changes spine. Old posterior lower left rib fractures. Degenerative changes of both hips. IMPRESSION: 1. No acute intra-abdominal abnormality 2. Sigmoid diverticulosis without radiographic indication diverticulitis. 3. Infrarenal abdominal aortic aneurysm and proximal right iliac artery aneurysm. These are described above. No indication of acute abnormality. 4. Heterogeneous enlarged prostate without a focal abnormality. This does cause significant impression to the urinary bladder. 5. Mild bibasilar atelectasis, right greater than left. 6. Other chronic findings as above. Report Dictated By: Joe Perkins at 06/29/2019 2:32 PM Report E-Signed By: Joe Perkins at 06/29/2019 2:43 PM WSN:[id number] ED Course/Re-evaluation ED Course Patient is admitted to exam room, history of physical were obtained. Differential diagnoses were considered. On examination lungs are clear, heart is regular, abdomen is soft and tender. IV was started, CBC, CMP, urinalysis, troponin, EKG, chest x-ray, CT scan of the head was done. CT scan of abdomen and pelvis was also done. The lab results were unremarkable except patient does appear to have a urinary tract infection. CT scan of the head showed no acute findings, CT scan of the abdomen and pelvis showed no acute findings. I discussed the case with Dr. Dan, hospitalist, who came to the emergency room and evaluated the patient. He did agree to accept the patient for admission. Patient was admitted with diagnosis of UTI, weakness. Decision to Disposition Date: Jun 29, 2019 Decision to Disposition Time: 16:19 Depart Departure Latest Vital Signs Vital Signs Date Time Temp Pulse Resp B/P (MAP) Pulse Ox O2 Delivery O2 Flow Rate FiO2 06/29/19 16:57 105 06/29/19 15:16 91 06/29/19 14:11 104/61 (75) 06/29/19 13:20 23 06/29/19 11:27 97.2 Room Air Impression: Primary Impression: Urinary tract infection Additional Impression: Weakness Condition: Condition Unchanged Disposition: XFER TO [facility] New Scripts No Active Prescriptions or Reported Meds Additional Instructions: Problem Qualifiers Primary Impression: Urinary tract infection Urinary tract infection type: site unspecified Hematuria presence: with hematuria Qualified Codes: N39.0 - Urinary tract infection, site not specified; R31.9 - Hematuria, unspecified JESSICA SARMIENTO Jun 29, 2019 11:31
[2019-06-29] MEDS ORDERED: NS(*) 0.9% 1000 ML BAG 1,000 ML IV ONE ×3 (11:50→14:40)
[2019-06-29 12:00] LABS: PLATELET COUNT, AUTOMATED 212 K/uL (150-450)
--- NOTE | 2019-06-29 12:03 | EKG ---
FACILITY: [facility] PATIENT NAME: HAI ROBERT : [id number] MR: [id number] V: [id number] EXAM DATE: ORDERING PHYSICIAN: JESSICA SARMIENTO TECHNOLOGIST: Test Reason : Blood Pressure : / mmHG Vent. Rate : 114 BPM Atrial Rate : 114 BPM P-R Int : 170 ms QRS Dur : 090 ms QT Int : 330 ms P-R-T Axes : 068 -53 071 degrees QTc Int : 454 ms Sinus tachycardia with PVC Left axis deviation R wave progression consistent with old ant/sep IA vs lead placement When compared with ECG of 21-JUN-2019 12:16, Unchanged Confirmed by PAL PEREZ ([id number]) on 06/29/2019 7:12:44 PM Referred By: Confirmed By:PAL PEREZ
[2019-06-29] MEDS ORDERED: cefTRIAXone(*) 1 GM VIAL 1 GM in WATER STERILE(*) 10 ML VIAL 10 ML IVP ONE (12:55)
[2019-06-29] MEDS ORDERED: IOPAMIDOL 76% 100 ML INFUS BTL 100 ML ONE (13:03)
--- NOTE | 2019-06-29 13:08 | RADIOLOGY IMAGING REPORT ---
FACILITY: [facility] [place] PATIENT NAME: Joe Bacon : 1945 MR: [id number] V: [id number] EXAM DATE: ORDERING PHYSICIAN: NATHANIEL PIMENTEL TECHNOLOGIST: Location: [facility] [place] Patient: Joe Bacon : 1945 Visit/Account:[id number] Date of Sevice: 06/29/2019 CHEST SINGLE AP INDICATION: CP COMPARISON: 06/20/2019 FINDINGS: Heart size within normal limits. There is no focal infiltrate or lobar consolidation. There are stable coarsened interstitial markin gs at the lung bases. There is no pneumothorax or pleural effusion. IMPRESSION: 1. No acute cardiopulmonary process. Report Dictated By: Henok Chung at 06/29/2019 12:58 PM Report E-Signed By: Henok Chung at 06/29/2019 1:00 PM WSN:[id number]
--- NOTE | 2019-06-29 14:52 | RADIOLOGY IMAGING REPORT ---
FACILITY: [facility] PATIENT NAME: Joe Bacon : 1945 MR: [id number] V: [id number] EXAM DATE: ORDERING PHYSICIAN: JESSICA SARMIENTO TECHNOLOGIST: Location: [facility] Patient: Joe Bacon : 1945 Visit/Account:[id number] Date of Sevice: 06/29/2019 CT abdomen and pelvis with IV contrast Indication: Abdominal pain. Comparison: None available. . Technique: Axial CT images were obtained through the abdomen and pelvis during injection of nonioni c iodinated intravenous contrast. Reformatted coronal and sagittal images were also obtained. One of the following dose optimization techniques was utilized in the performance of this exam: Autom ated exposure control; adjustment of the mA and/or kV according to the patient's size; or use of an i terative reconstruction technique. Specific details can be referenced in the facility's radiology C T exam operational policy. Contrast: 75 ml of Isovue-370 IV contrast. Findings: Lower lung carrasquillo: Mild bibasilar atelectasis, right greater than left. Otherwise clear. Liver: No focal parenchymal abnormality of the liver. Biliary: Gallbladder appears unremarkable as well as the intra and extra hepatic biliary system. Pancreas: No focal abnormality. Spleen: Calcified granulomas, otherwise no focal abnormality. Adrenal glands: Unremarkable. Kidneys / retroperitoneum: No evidence of nephrolithiasis or hydronephrosis in each kidney shows a do minant cyst with a couple tiny cysts. The right renal cyst measures 3.1 cm and the left renal cyst me asures 1.6 cm. Bowel / peritoneum / mesenteries: Diverticula seen along the sigmoid colon without pericolonic inflam mation. The colon shows no other focal normality. The appendix is normal. Small bowel shows no focal abnormality or obstruction. The stomach is decompressed and grossly normal. No free air, free fluid, fluid collections or areas of inflammation. Small umbilical hernia containin g fat. Lymph node assessment: No pathologic adenopathy identified. Pelvic structures: Prostate is heterogeneous and enlarged without discrete focal lesion. This caus es significant impression to the urinary bladder. The urinary bladder shows no other focal normality. The remaining pelvic structures visualized within normal limits. Vessels: The infrarenal abdominal aorta does show mild aneurysmal dilatation measuring up to 2.6 x 3. 5 cm with atherosclerotic calcific changes and medial chronic thrombus. The inferior portion of the a neurysm does abut up against the IVC without focal normality. The patent lumen measures 2.2 x 1.9 cm. No periaortic inflammation or fluid. The proximal right iliac artery does show a focal aneurysmal di latation measuring 3.1 x 3.1 cm with a patent lumen on the lateral aspect measuring 1.8 x 1.2 cm. No surrounding inflammation or fluid. The abdominal aortic aneurysm extends for approximately 4.7 cm and the right iliac aneurysm extends for approximately 3.5 cm. No other aneurysms are identified. Musculoskeletal / Body wall: No acute or aggressive osseous abnormality. Degenerative changes spine. Old posterior lower left rib fractures. Degenerative changes of both hips. IMPRESSION: 1. No acute intra-abdominal abnormality 2. Sigmoid diverticulosis without radiographic indication diverticulitis. 3. Infrarenal abdominal aortic aneurysm and proximal right iliac artery aneurysm. These are described above. No indication of acute abnormality. 4. Heterogeneous enlarged prostate without a focal abnormality. This does cause significant impressio n to the urinary bladder. 5. Mild bibasilar atelectasis, right greater than left. 6. Other chronic findings as above. Report Dictated By: Joe Perkins at 06/29/2019 2:32 PM Report E-Signed By: Joe Perkins at 06/29/2019 2:43 PM WSN:[id number]
--- NOTE | 2019-06-29 14:58 | RADIOLOGY IMAGING REPORT ---
FACILITY: [facility] PATIENT NAME: Joe Bacon : 1945 MR: [id number] V: [id number] EXAM DATE: ORDERING PHYSICIAN: JESSICA SARMIENTO TECHNOLOGIST: Location: [facility] [place] Patient: Joe Bacon : 1945 Visit/Account:[id number] Date of Sevice: 06/29/2019 CT Head without contrast Indication: Altered mental status. Comparison: 06/16/2019. Technique: Axial CT images were obtained through the brain from the skull base to the vertex without administration of IV contrast. Reformatted coronal and sagittal images were also obtained. One of the following dose optimization techniques was utilized in the performance of this exam: autom ated exposure control; adjustment of the mA and/or kV according to the patient's size; or use of an i terative reconstruction technique. Specific details can be referenced in the facility's radiology CT exam operational policy. Findings: No evidence of mass, mass effect, or midline shift. No acute intracranial hemorrhage or acute territorial infarction. No extra-axial fluid collection or hydrocephalus. Age-related cerebral atrophy. Mild periventricular white matter ischemic changes consistent small vessel disease. Floyd/white matter differentiation appe ars normal. Bony structures show no fractures or lesions. There is again complete opacification of the left maxillary sinus with heterogeneous density consiste nt chronic sinus disease. A small cyst/polyp is again seen along the medial wall of the right maxilla ry sinus. The remaining sinuses and mastoids visualized are clear. IMPRESSION: 1. Continued mild senescent changes without acute abnormality. 2. Continued bilateral maxillary sinus disease, left greater than right. Report Dictated By: Joe Perkins at 06/29/2019 2:44 PM Report E-Signed By: Joe Perkins at 06/29/2019 2:49 PM WSN:[id number]
[2019-06-29] MEDS ORDERED: QUEtiapine FUM 25 MG TAB PO PRN (17:10)
[2019-06-29] MEDS ORDERED: INFLUENZA VIRUS VAC 0.5ML SYR IM ONLY ONE (17:10)
[2019-06-29] MEDS ORDERED: ALBUTEROL 2.5 MG/3 ML NEB NEB PRN (17:10)
[2019-06-29] MEDS: ALBUTEROL/IPRATROPIUM 3 ML NEB NEB SCH (17:28)
[2019-06-29] MEDS ORDERED: OLANZapine ZYDIS ODT 5MG TABDP PO PRN (17:40)
[2019-06-29 18:01] VITALS: BP 138/82
--- NOTE | 2019-06-29 18:29 | History & Physical ---
History of Present Illness History of Present Illness 74yo male with a h/o antisocial with narcissistic traits who was brought to the ER for confusion and weakness. He has been to the ER 7 times since June 13. On 06/13, he given an 8 day course of prednisone and azithromycin for a COPD exacerbation. On 06/16, he had a seizure, was transiently post-ictal and then wanted to go home without further evaluation. On 06/18, he was found wandering and brought to the ER, but no abnormalities were found. On 06/20, he was found with diarrhea on his legs and a sore on his left ankle. He was sent home on Keflex for prophylactic treatment of the sore because of the soiling. He never filled the Keflex. On 06/21, he was found wandering again. He was hydrated and sent home with Keflex, again. On 06/23, he reported blood in urine and intoxication. He was sent home with a take home pack of Keflex because the left foot did look infected and the erythema was outlined with a marker. Today, he was brought in for confusion and weakness. As EMS, picked him up, the motel i nformed him that he could no longer stay there. The patient denies any pain, nausea, or SOB. ER staff report that he needs help to stay upright when standing which is new for him. He was given 3 liters of NS for an elevated lactate and given a dose of Rocephin. History Problems: (1) Personality disorder, unspecified Status: Chronic (2) Homelessness Status: Acute Home Meds No Active Prescriptions or Reported Meds Allergies: Coded Allergies: No Known Drug Allergies (Unverified , 06/21/19) Hx Smoking: Yes Smoking Status: Former Smoker Exposure to Second Hand Smoke?: Yes Caffeine Intake: Coffee Hx Alcohol Use: Yes Hx Substance Use Disorder: Yes Social Drug Use: Former Social Drugs: Marijuana Amount Of Social Drug/s Used: varied when he was younger Review of Systems Other The patient isn't able to give much review of systems. Exam Vital Signs Vital Signs Date Time Temp Pulse Resp B/P (MAP) Pulse Ox O2 Delivery O2 Flow Rate FiO2 06/29/19 17:32 2.0 06/29/19 17:30 101 20 06/29/19 17:24 92 Nasal Cannula 06/29/19 14:11 104/61 (75) 06/29/19 11:27 97.2 General Appearance: Alert, Awake, No Acute Distress Neuro: Other (Follows commands, KELLEY, no facial droop or focal motor deficits. He knows that he is in a hospital in [place]. He thinks it is February and doesn't know the year. He thinks that he is the hospital for breathing problems. Disheveled, tangential, but calm and agreeable.) Neck: Other (tacky mm) Cardiovascular: Regular Rate and Rhythm Respiratory: Clear to Auscultation GI: Other (Soft, ND, he reports tenderness around the umbilicus. No rebound tenderness or signs of peritonitis) Extremities: No Edema Medical Decision Making Data Points Result Diagram: 06/29/19 1139 06/29/19 1139 Item Value Date Time White Blood Count 12.8 k/uL H 06/29/19 1139 Neutrophils (%) (Auto) 87.1 % H 06/29/19 1139 Lymphocytes (%) (Auto) 4.2 % L 06/29/19 1139 Monocytes (%) (Auto) 8.5 % 06/29/19 1139 Eosinophils (%) (Auto) 0.1 % L 06/29/19 1139 Basophils (%) (Auto) 0.1 % L 06/29/19 1139 Lactate 2.6 mmol/L H 06/29/19 1139 Lactate 1.3 mmol/L 06/29/19 1555 Blood Urea Nitrogen 35 mg/dl H 06/29/19 1139 Creatinine 1.20 mg/dl 06/29/19 1139 Total Bilirubin 1.5 mg/dl H 06/29/19 1139 Aspartate Amino Transf (AST/SGOT) 50 U/L H 06/29/19 1139 Alanine Aminotransferase (ALT/SGPT) 71 U/L H 06/29/19 1139 Alkaline Phosphatase 138 U/L H 06/29/19 1139 Ammonia < 9 UMOL/L L 06/29/19 1214 Troponin I < 0.012 ng/ml 06/29/19 1214 Thyroid Stimulating Hormone (TSH) 1.07 uIU/ml 06/29/19 1139 Urine RBC 13 /HPF 06/29/19 1206 Urine WBC 51 /HPF 06/29/19 1206 Urine Squamous Epithelial Cells Many /LPF H 06/29/19 1206 Urine Bacteria Negative /HPF 06/29/19 1206 Urine Hyaline Casts Few /LPF 06/29/19 1206 Urine Mucus Few /HPF 06/29/19 1206 Urine Leukocyte Esterase Small H 06/29/19 1206 Urine Blood Moderate 06/29/19 1206 Urine Ketones 20 mg/dL H 06/29/19 1206 Urine Urobilinogen 4.0 mg/dL H 06/29/19 1206 Serum Alcohol < 10 mg/dl 06/29/19 1139 Acetaminophen Level < 10 ug/ml 06/29/19 1139 Urine Opiates Screen Negative 06/29/19 1206 Urine Barbiturates Screen Negative 06/29/19 1206 Ur Tricyclic Antidepressants Screen Negative 06/29/19 1206 Urine Phencyclidine Screen Negative 06/29/19 1206 Urine Amphetamines Screen Negative 06/29/19 1206 Urine Benzodiazepines Screen Negative 06/29/19 120 Urine Cocaine Screen Negative 06/29/19 120 Urine Cannabinoids Screen Negative 06/29/19 1206 EKG / Imaging EKG Interpretation Vent. Rate : 114 BPM Atrial Rate : 114 BPM P-R Int : 170 ms QRS Dur : 090 ms QT Int : 330 ms P-R-T Axes : 068 -53 071 degrees QTc Int : 454 ms Sinus tachycardia Left axis deviation Imaging Abd/Pelvis CT - 1. No acute intra-abdominal abnormality 2. Sigmoid diverticulosis without radiographic indication diverticulitis. 3. Infrarenal abdominal aortic aneurysm and proximal right iliac artery aneurysm. These are described above. No indication of acute abnormality. 4. Heterogeneous enlarged prostate without a focal abnormality. This does cause significant impression to the urinary bladder. 5. Mild bibasilar atelectasis, right greater than left. 6. Other chronic findings as above. Head CT - 1. Continued mild senescent changes without acute abnormality. 2. Continued bilateral maxillary sinus disease, left greater than right. CXR - 1. No acute cardiopulmonary process. Assessment and Plan Problems: (1) Altered mental status Status: Acute Assessment & Plan: He presented with weakness and confusion. He has been to the ER 7 times since June 13. On 06/13, he given an 8 day course of prednisone and azithromycin for a COPD exacerbation. On 06/16, he had a seizure, was tra nsiently post-ictal and then wanted to go home without further evaluation. On 06/18, he was found wandering and brought to the ER, but no abnormalities were found. On 06/20, he was found with diarrhea on his legs and a sore on his left ankle. He was sent home on Keflex for prophylactic treatment of the sore because of the soiling. He never filled the Keflex. On 06/21, he was found wandering again. He was hydrated and sent home with Keflex, again. On 06/23, he reported blood in urine and intoxication. He was sent home with a take home pack of Keflex because the left foot did look infected and the erythema was outlined with a marker. Today, he is confused to date and events leading to going to the ER. Certainly, dehydration and acute infection are contributing, but at baseline is tangential with ideas of grandeur. He has been hydrated and started on antibiotics. He is globally weak, such that he is requiring assistance just to stand. We will ask OT/PT to evaluate. (2) Cellulitis of left foot Status: Acute Assessment & Plan: Left medial ankle has area of skin breakdown about 3x4cm with surrounding erythema. No purulent discharge. The erythema has receded from the boundaries drawn in on 06/23. He will be placed on Ceftriaxone and have the wound cleaned and dressed. (3) Pyuria Status: Acute Assessment & Plan: Many SCE on UA. UA on 06/21 was similar and had no growth. Will do a catheterization to repeat the UA and check a culture. (4) Personality disorder, unspecified *Optional Permanent Comment*: likely narcissistic and antisocial traits that are long standing. Last Edited By: Eduardo Crespo on Oct 23, 2018 11:48 Status: Chronic (5) AAA (abdominal aortic aneurysm) Assessment & Plan: Found on CT: The infrarenal abdominal aorta does show mild aneurysmal dilatation measuring up to 2.6 x 3.5 cm with atherosclerotic calcific changes and medial chronic thrombus. The inferior portion of the aneurysm does abut up against the IVC without focal normality. The patent lumen measures 2.2 x 1.9 cm. No periaortic inflammation or fluid. The proximal right iliac artery does show a focal aneurysmal dilatation measuring 3.1 x 3.1 cm with a patent lumen on the lateral aspect measuring 1.8 x 1.2 cm. No surrounding inflammation or fluid. The abdominal aortic aneurysm extends for approximately 4.7 cm and the right iliac aneurysm extends for approximately 3.5 cm. No other aneurysms are identified. Even though he has a mural thrombus there are not recommendations for anticoagulation because he has no evidence of embolism. He will need scheduled monitoring of the aneurysms because his aneurysm is less than 5.5cm. (6) Homelessness Status: Acute Assessment & Plan: He was evicted from his motel as he was taken by EMS. TCN to help with disposition. Venous Thromboembolism Antithrombotics Is Pt On Any Antithrombotics?: No Exam Sepsis Risk: No Definite Risk PAL PEREZ MD Jun 29, 2019 18:29
[2019-06-29] MEDS: KCL (*) 20 MEQ/100 ML PREMIX 100 ML IV SCH ×2 (19:10→19:13)
[2019-06-29] MEDS: NS(*) 0.9% 1000 ML BAG 1,000 ML IV PRN (19:13)
[2019-06-29 21:30] VITALS: BP 127/76
[2019-06-30] MEDS: ALBUTEROL/IPRATROPIUM 3 ML NEB NEB SCH ×3 (05:19→18:24)
[2019-06-30 05:41] LABS: PLATELET COUNT, AUTOMATED 144 K/uL (150-450)
[2019-06-30] MEDS: NS(*) 0.9% 1000 ML BAG 1,000 ML IV PRN (06:05)
[2019-06-30 06:09] VITALS: BP 126/77
[2019-06-30] MEDS ORDERED: KCL/NS* 20 MEQ/1000 ML PREMIX 1,000 ML IV SCH (08:50)
[2019-06-30] MEDS ORDERED: KCL (*) 20 MEQ/100 ML PREMIX 100 ML IV ONE (08:55)
[2019-06-30] MEDS: NYSTATIN 100,000 U/GM PWD 15GM TP SCH ×2 (10:38→21:47)
--- NOTE | 2019-06-30 10:43 | Antimicrobial Stewardship ---
Antimicrobial Time Out Antimicrobial Stewardship MD Service: Hospitalist Indications: UTI, Cellulitis Antimicrobial Used Rocephin Culture Results: Yes (Blood cultures show no growth so far) Eligible for PO Conversion Eligable for PO Conversion: Yes (With clinical improvement) SOCORRO EWING Jun 30, 2019 10:43
--- NOTE | 2019-06-30 12:06 | Hospitalist Progress Note ---
Subjective Progress Notes Subjective No acute events overnight. He was able to tell me he was in the hospital in [place], but was not able to communicate anything else relevant in any organized fashion. Patient Complains of: Neurological: Confusion Cardiovascular: No: Chest Pain, Palpitations Respiratory: No: Cough, Congestion, Shortness of Breath Musculoskeletal: No: Pain Physical Exam Vital Signs Date Time Temp Pulse Resp B/P (MAP) Pulse Ox O2 Delivery O2 Flow Rate FiO2 06/30/19 06:21 92 Nasal Cannula 3.0 06/30/19 06:09 97.7 94 24 126/77 (93) Intake and Output 06/30/19 07:04 Intake Total 3450 ml Output Total 150 ml Balance 3300 ml Intake Oral 500 ml IV Total 2950 ml Output Urine Total 150 ml # Voids 2 General Appearance: Other (Confused) Cardiovascular: Regular Rate and Rhythm Respiratory: No Respiratory Distress Psych: Other (Able to communicate that he was in the hospital in [place], but nothing else that pertained to anything valid. Rambling conversation.) Result Diagram: 06/30/1915 06/30/19514 Assessment and Plan Problems: (1) Altered mental status Status: Acute Assessment & Plan: He presented with weakness and confusion. He has been to the ER 7 times since June 13. On 06/13, he given an 8 day course of prednisone and azithromycin for a COPD exacerbation. On 06/16, he had a seizure, was transiently post-ictal and then wanted to go home without further evaluation. On 06/18, he was found wandering and brought to the ER, but no abnormalities were found. On 06/20, he was found with diarrhea on his legs and a sore on his left ankle. He was sent home on Keflex for prophylactic treatment of the sore because of the soiling. He never filled the Keflex. On 06/21, he was found wandering again. He was hydrated and sent home with Keflex, again. On 06/23, he reported blood in urine and intoxication. He was sent home with a take home pack of Keflex because the left foot did look infected and the erythema was outlined with a marker. This morning (06/30) he knew he was in the hospital in [place], but was not able to put together any more rational thoughts. Certainly, dehydration and acute infection are contributing, but at baseline is tangential with ideas of grandeur. He has been hydrated and started on antibiotics. He is globally w eak, such that he is requiring assistance just to stand. PT/OT is working with him. (2) Cellulitis of left foot Status: Acute Assessment & Plan: Left medial ankle has area of skin breakdown about 3x4cm with surrounding erythema. The erythema has receded from the boundaries drawn in on 06/23. PT to see the wound and suggest treatment. Wound is currently covered by Mepilex and does have a moderate about of discharge to wound surface. (3) Pyuria Status: Acute Assessment & Plan: Many SCE on UA. UA on 06/21 was similar and had no growth. Cath UA on 06/29 was improved from initial UA on 06/29. Culture is still pending. (4) Hypokalemia Assessment & Plan: Treated with K-riders and IVF with potassium added. Will continue to monitor. (5) Personality disorder, unspecified *Optional Permanent Comment*: likely narcissistic and antisocial traits that are long standing. Last Edited By: Eduardo Crespo on Oct 23, 2018 11:48 Status: Chronic (6) AAA (abdominal aortic aneurysm) Assessment & Plan: Found on CT: The infrarenal abdominal aorta does show mild aneurysmal dilatation measuring up to 2.6 x 3.5 cm with atherosclerotic calcific changes and medial chronic thrombus. The inferior portion of the aneurysm does abut up against the IVC without focal normality. The patent lumen measures 2.2 x 1.9 cm. No periaortic inflammation or fluid. The proximal right iliac artery does show a focal aneurysmal dilatation measuring 3.1 x 3.1 cm with a patent lumen on the lateral aspect measuring 1.8 x 1.2 cm. No surrounding inflammation or fluid. The abdominal aortic aneurysm extends for approximately 4.7 cm and the right iliac aneurysm extends for approximately 3.5 cm. No other aneurysms are identified. Even though he has a mural thrombus there are not recommendations for anticoagulation because he has no evidence of embolism. He will need scheduled monitoring of the aneurysms because his aneurysm is less than 5.5cm. (7) Homelessness Status: Acute Assessment & Plan: He was evicted from his motel as he was taken by EMS. TCN to help with disposition. Exam Sepsis Risk: Severe Sepsis Risk HAI FAUST Jun 30, 2019 12:06
[2019-06-30] MEDS ORDERED: cefTRIAXone(*) 1 GM VIAL 1 GM in WATER STERILE(*) 10 ML VIAL 10 ML IVP SCH (13:00)
--- NOTE | 2019-06-30 14:08 | NUR ---
Physical Therapy Impression Pt notes that L) medial ankle is tender to touch but is agreeable to cleansing. Pt recently showered and wound is currently open to air. Pt would benefit from a padded dressing for absorption and protection while wound is maintained with a moist healing environment. No selective, sharps debridement currently indicated. PT applied skin prep to periwound skin for improved adhesiveness. Silicone border 6x6 dressing to cover open wound. This is to be left in place for up to one week in order to optimize wound healing temperature and facilitate moist wound bed healing. Nrsg may change sooner if dressing becomes contaminated, overly saturated or dislodged. Additional dressing left in room. Physical Therapy Goals 1. SBA bed mobility. 2. SBA transfers. 3. SBA gait x 150' with appropriate assistive device. Patient's Goals
--- NOTE | 2019-06-30 14:41 | NUR ---
Physical Therapy Impression PT eval complete. Pt requires SBA for bed mobility, CGA to stand, and CGA to ambulate directly into bathroom for a shower due to urine incontinence. Pt will require 24 hour care upon DC. Physical Therapy Goals 1. SBA bed mobility. 2. SBA transfers. 3. SBA gait x 150' with appropriate assistive device. Patient's Goals
--- NOTE | 2019-06-30 15:39 | Medical Nutrition Therapy ---
Nutrition Anthropometrics Weight (Pounds): 164 Weight (Calculated Kilograms): 74.389 Hx Weight Loss: Yes (Lost around 57 lbs between 06/16-06/30. Went from 99.79 kg to 74 kg. ) Adin Nutrition Score: Probably Inadequate Adin Nutrition Risk Score: 13 Dietary Referral Nutrition Risk Factors: Unplanned Loss >10lbs Nutrition Risk Comment: Physical Findings Physical Appearance: Skin Appearance Skin Appearance: Edema Edema Location Modifier: Edema Location: Type of Edema: Degree of Edema: Gastrointestinal Symptoms GI Symtoms: Tube Present: Bowel Sounds: Recent Bowel Pattern: Stool Characteristics: Nutritional Diagnosis Nutritional Risk Acuity 2: Unintended Wt Loss >5%/mo Past Medical History: COPD exacerbation, alcohol abuse, substance abuse Nutritional Acuity: 2-Moderate Nutrition Diagnosis: Involuntary Wt. Loss Nutrition Etiology: Inability Manage SelfCare Nutrition Problem/Etiology/Sym: AEB weight loss of around 57 pounds beween June 16-June 30 Adjusted Energy Requirement Re: 1850 (25kcal/g/day) Protein Requirement: 75 (1g/kg/day) Fluid Requirement: 1850 (1850-2220ml (25-30ml/kg/day)) Diet Type: Diet as Tolerated ZACKARY/REG Nutrition Intervention: Cont diet as ordered, Encourage intake Diet Comment To RSA: Offer supplement (ensure) Nutrition Monitoring & Eval Nutrition Goals: Eat 75-100% Meal Nutrition Monitoring: Intake, weight RD Patient Assessment Time: [address] Assessment Type: RD Assessment Patient Nutrition Acuity: 2-Moderate Follow Up Date: Jul 04, 2019 Nutritional Comment: 06/30/2019: According to H&P, pt has been to ER 7 times since June 13. He was picked up by EMS for confusion and weaknes, and according to the report, the motel said he was no longer allowed to stay there. He is now homeless. Between the visit during June 16, and today, he went from 99.79 kg to 74 kg with a loss of around 25.7 kg (57 lbs.). Will perform Nutrition Focused Physical Exam to assess for potential malnutrition. Recommend supplements to help manage further weight loss. Will obtain height in order to calculate BMI. Laboratory values indicate: low hemoglobin of 13.1, low hct of 39.1, low sodium of 134, low potassium of 3, high LFT, and low albumin of 3.1. Pt was diagnosed by MD with altered mental status, cellulitis, pyuria, AAA, homelessness and personality disorder. Visited with pt to discuss weight loss, and he reported that the weight loss was needed. Pt claims that he typically has a great appetite and "eats like a horse." Pt started to discuss family history, but was difficult to understand. Will continue to monitor intake, weight loss, and laboratory values. - JUDITH SIMS Jun 30, 2019 11:26
[2019-06-30 16:08] VITALS: BP 104/62
[2019-06-30] MEDS ORDERED: POTASSIUM CHL PWDR 20 MEQ PKT PO ONE (19:30)
[2019-06-30 19:40] VITALS: BP 114/70
[2019-06-30 23:53] VITALS: BP 105/64
[2019-07-01] MEDS: ALBUTEROL/IPRATROPIUM 3 ML NEB NEB SCH ×3 (05:25→17:13)
[2019-07-01 06:36] LABS: PLATELET COUNT, AUTOMATED 161 K/uL (150-450)
[2019-07-01 07:21] VITALS: BP 105/76
[2019-07-01] MEDS: POTASSIUM CHL PWDR 20 MEQ PKT PO SCH ×2 (09:30→17:26)
[2019-07-01] MEDS: NYSTATIN 100,000 U/GM PWD 15GM TP SCH ×2 (09:31→21:23)
[2019-07-01] MEDS: CEFDINIR 300 MG CAP PO SCH ×3 (09:31→21:23)
--- NOTE | 2019-07-01 09:55 | NUR ---
Physical Therapy Impression For bed mobility, Mod assist required due to pt's lack of initiation; pt's strengths allows him to complete this indep when he desires. For ambulation, Pt requires Min assist at times to negotiate walker due to decreased initiation of activity. Pt is capable of completing this skill indep when he desires, but does not currently demo the capacity to understand when he needs to get up for voiding etc. Physical Therapy Goals 1. SBA bed mobility. 2. SBA transfers. 3. SBA gait x 150' with appropriate assistive device. Patient's Goals
--- NOTE | 2019-07-01 09:56 | Hospitalist Progress Note ---
Subjective Progress Notes Subjective He had no acute events overnight. He is unable to answer any of my questions. He states, " You look Yi to me". Not making any sense with his sentences. Physical Exam Vital Signs Date Time Temp Pulse Resp B/P (MAP) Pulse Ox O2 Delivery O2 Flow Rate FiO2 07/01/19 08:10 90 Room Air 07/01/19 07:21 98.5 97 15 105/76 (86) 2.0 Intake and Output 07/01/19 07:04 Intake Total 550 ml Balance 550 ml Intake Oral 550 ml # Voids 5 General Appearance: No Acute Distress Neuro: Other (mumbling sentences which do not make sense) Cardiovascular: Regular Rate and Rhythm Respiratory: No Respiratory Distress, Clear to Auscultation Extremities: Warm, Perfused; No Edema Psych: Other (non appropriate communication) Result Diagram: 07/01/1952107/01/19521 Assessment and Plan Problems: (1) Altered mental status Status: Acute Assessment & Plan: He presented with weakness and confusion. He has been to the ER 7 times since June 13. On 06/13, he given an 8 day course of prednisone and azithromycin for a COPD exacerbation. On 06/16, he had a seizure, was transiently post-ictal and then wanted to go home without further evaluation. On 06/18, he was found wandering and brought to the ER, but no abnormalities were found. On 06/20, he was found with diarrhea on his legs and a sore on his left ankle. He was sent home on Keflex for prophylactic treatment of the sore because of the soiling. He never filled the Keflex. On 06/21, he was found wandering again. He was hydrated and sent home with Keflex, again. On 06/23, he reported blood in urine and intoxication. He was sent home with a take home pack of Keflex because the left foot did look infected and the erythema was outlined with a marker. H has stated he knew he was in the hospital in [place], but has not been able to put together any more rational thoughts. Certainly, dehydration and acute infection could be contributing, but at baseline is tangential with ideas of grandeur. He has been hydrated and started on antibiotics. He is globally weak, such that he is requiring assistance just to stand. PT/OT is working with him. (2) Cellulitis of left foot Status: Acute Assessment & Plan: Left medial ankle has area of skin breakdown about 3x4cm with surrounding erythema. The erythema has receded from the boundaries drawn in on 06/23. Pt wound evaluation completed. See wound note. Covered for one week, then re-evaluate. (3) Pyuria Status: Acute Assessment & Plan: Many SCE on UA. UA on 06/21 was similar and had no growth. Cath UA on 06/29 was improved from initial UA on 06/29. Culture pending showing no growth currently. (4) Hypokalemia Assessment & Plan: Treated with K-rider and IVF with potassium added, but no longer has an IV. Will give oral supplement and continue to monitor. (5) Personality disorder, unspecified *Optional Permanent Comment*: likely narcissistic and antisocial traits that are long standing. Last Edited By: Eduardo Crespo on Oct 23, 2018 11:48 Status: Chronic Assessment & Plan: Will consult psych for recommendations for possible treatment. (6) AAA (abdominal aortic aneurysm) Assessment & Plan: Found on CT: The infrarenal abdominal aorta does show mild aneurysmal dilatation measuring up to 2.6 x 3.5 cm with atherosclerotic calcific changes and medial chronic thrombus. The inferior portion of the aneurysm does abut up against the IVC without focal normality. The patent lumen measures 2.2 x 1.9 cm. No periaortic inflammation or fluid. The proximal right iliac artery does show a focal aneurysmal dilatation measuring 3.1 x 3.1 cm with a patent lumen on the lateral aspect measuring 1.8 x 1.2 cm. No surrounding inflammation or fluid. The abdominal aortic aneurysm extends for approximately 4.7 cm and the right iliac aneurysm extends for approximately 3.5 cm. No other aneurysms are identified. Even though he has a mural thrombus there are not recommendations for anticoagulation because he has no evidence of embolism. He will need scheduled monitoring of the aneurysms because his aneurysm is less than 5.5cm. (7) Homelessness Status: Acute Assessment & Plan: He was evicted from his motel as he was taken by EMS. TCN to help with disposition. Exam Sepsis Risk: No Definite Risk BAKARI SHARMA Jul 01, 2019 09:56
[2019-07-01 11:19] VITALS: BP 104/71
[2019-07-01] MEDS: risperiDONE 1 MG TAB PO SCH ×2 (21:00→21:23)
[2019-07-01 21:15] VITALS: BP 96/56
[2019-07-02] VITALS (10 sets, daily range): BP systolic 60–102; BP diastolic 38–67
[2019-07-02] MEDS: ALBUTEROL/IPRATROPIUM 3 ML NEB NEB SCH ×3 (05:41→17:15)
[2019-07-02 06:32] LABS: PLATELET COUNT, AUTOMATED 170 K/uL (150-450)
[2019-07-02] MEDS: risperiDONE 1 MG TAB PO SCH ×3 (10:02→22:26)
[2019-07-02] MEDS: POTASSIUM CHL PWDR 20 MEQ PKT PO SCH ×2 (10:02→17:00)
[2019-07-02] MEDS: CEFDINIR 300 MG CAP PO SCH (10:03)
[2019-07-02] MEDS: NYSTATIN 100,000 U/GM PWD 15GM TP SCH ×2 (10:09→22:14)
--- NOTE | 2019-07-02 10:25 | Hospitalist Progress Note ---
Subjective Progress Notes Subjective He is sleeping this morning throughout exam. He had no acute events overnight. Patient Complains of: Cardiovascular: No: Chest Pain Respiratory: No: Shortness of Breath Physical Exam Vital Signs Date Time Temp Pulse Resp B/P (MAP) Pulse Ox O2 Delivery O2 Flow Rate FiO2 07/02/19 09:59 94/66 (75) 07/02/19 09:54 99.2 95 16 87 Nasal Cannula 3.5 Intake and Output 07/02/19 07:04 Intake Total 1000 ml Balance 1000 ml Intake Oral 1000 ml # Voids 5 General Appearance: No Acute Distress, Afebrile Cardiovascular: Regular Rate and Rhythm Respiratory: No Respiratory Distress, Clear to Auscultation Psych: Other (sleeping throughout exam) Result Diagram: 07/02/1952307/02/19523 Assessment and Plan Problems: (1) Altered mental status Status: Acute Assessment & Plan: He presented with weakness and confusion. He has been to the ER 7 times since June 13. On 06/13, he given an 8 day course of prednisone and azithromycin for a COPD exacerbation. On 06/16, he had a seizure, was transiently post-ictal and then wanted to go home without further evaluation. On 06/18, he was found wandering and brought to the ER, but no abnormalities were found. On 06/20, he was found with diarrhea on his legs and a sore on his left ankle. He was sent home on Keflex for prophylactic treatment of the sore because of the soiling. He never filled the Keflex. On 06/21, he was found wandering again. He was hydrated and sent home with Keflex, again. On 06/23, he reported blood in urine and intoxication. He was sent home with a take home pack of Keflex because the left foot did look infected and the erythema was outlined with a marker. H has stated he knew he was in the hospital in [place], but has not been able to put together any more rational thoughts. Certainly, dehydration and acute infection could be contributing, but at baseline is tangential with ideas of grandeur. He has been hydrated and started on antibiotics. He is globally weak, such that he is requiring assistance just to stand. PT/OT is working with him. (2) Cellulitis of left foot Status: Acute Assessment & Plan: Left medial ankle has area of skin breakdown about 3x4cm with surrounding erythema. The erythema has receded from the boundaries drawn in on 06/23. Pt wound evaluation completed. See wound note. Covered for one week, then re-evaluate. Continue Omnicef for wound. (3) Pyuria Status: Acute Assessment & Plan: Many SCE on UA. UA on 06/21 was similar and had no growth. Cath UA on 06/29 was improved from initial UA on 06/29. Culture pending showing no growth currently. (4) Hypokalemia Assessment & Plan: Treated with K-rider and IVF with potassium added, but no longer has an IV. Will give oral supplement and continue to monitor. (5) Personality disorder, unspecified *Optional Permanent Comment*: likely narcissistic and antisocial traits that are long standing. Last Edited By: Eduardo Crespo on Oct 23, 2018 11:48 Status: Chronic Assessment & Plan: Dr. Yusuf recommends treatment with Risperdal 1mg BID. He refused his dose last night, but took his medication without difficulty this morning. (6) AAA (abdominal aortic aneurysm) Assessment & Plan: Found on CT: The infrarenal abdominal aorta does show mild aneurysmal dilatation measuring up to 2.6 x 3.5 cm with atherosclerotic calcific changes and medial chronic thrombus. The inferior portion of the aneurysm does abut up against the IVC without focal normality. The patent lumen measures 2.2 x 1.9 cm. No periaortic inflammation or fluid. The proximal right iliac artery does show a focal aneurysmal dilatation measuring 3.1 x 3.1 cm with a patent lumen on the lateral aspect measuring 1.8 x 1.2 cm. No surrounding inflammation or fluid. The abdominal aortic aneurysm extends for approximately 4.7 cm and the right iliac aneurysm extends for approximately 3.5 cm. No other aneurysms are identified. Even though he has a mural thrombus there are not recommendations for anticoagulation because he has no evidence of embolism. He will need scheduled monitoring of the aneurysms because his aneurysm is less than 5.5cm. (7) Homelessness Status: Acute Assessment & Plan: He was evicted from his motel as he was taken by EMS. TCN to help with disposition. Exam Sepsis Risk: No Definite Risk BAKARI SHARMA TUTOR COORDINATOR Jul 02, 2019 10:25
[2019-07-02] MEDS ORDERED: ENOXAPARIN 40 MG/0.4ML SYR SC ONE (14:05)
[2019-07-02] MEDS: ACETAMINOPHEN 325 MG TAB PO PRN (14:32)
--- NOTE | 2019-07-02 14:48 | RADIOLOGY IMAGING REPORT ---
FACILITY: [facility] PATIENT NAME: Joe Bacon : 1945 MR: [id number] V: [id number] EXAM DATE: ORDERING PHYSICIAN: PAL PEREZ TECHNOLOGIST: Location: [facility] Patient: Joe Bacon : 1945 Visit/Account:[id number] Date of Sevice: 07/02/2019 EXAMINATION: Portable chest radiograph single view at 1:52 PM HISTORY: Increased oxygen requirements. Fever. COMPARISON: 06/29/2019. FINDINGS: A single portable AP view of the chest is obtained. Lines/tubes: None. Lungs/pleura: There are hazy opacities at the right lung base and mild hazy opacity at the left late ral costophrenic sulcus. Pulmonary vascularity is within normal limits. No evidence of pneumothorax. Heart: Normal heart size. Mediastinum: Negative. Bony structures/body wall: Lateral osteophytes in the thoracic spine. IMPRESSION: Small bibasilar airspace opacities, right more than left. This could represent atelectasis, however, a superimposed infiltrate is possible. Report Dictated By: Ricco Mg MD at 07/02/2019 2:35 PM Report E-Signed By: Ricco Mg MD at 07/02/2019 2:39 PM WSN:[id number]
[2019-07-02] MEDS ORDERED: NS(*) 0.9% 500 ML BAG 500 ML IV PRN (15:50)
[2019-07-02] MEDS: DOXYCYCLINE HYCL 100 MG VIAL 100 MG in NS(*) 0.9% 250 ML BAG 250 ML IV SCH (17:56)
[2019-07-03 03:15] VITALS: BP 82/50
[2019-07-03] MEDS: ALBUTEROL/IPRATROPIUM 3 ML NEB NEB SCH ×3 (05:34→17:17)
[2019-07-03] MEDS: DOXYCYCLINE HYCL 100 MG VIAL 100 MG in NS(*) 0.9% 250 ML BAG 250 ML IV SCH ×2 (07:05→18:18)
[2019-07-03 08:42] VITALS: BP 95/64
--- NOTE | 2019-07-03 10:42 | Hospitalist Progress Note ---
Subjective Progress Notes Subjective He developed cough and had increased oxygen requirement yesterday afternoon. CXR shows infiltrate. He is now on treatment for pneumonia. Patient Complains of: Cardiovascular: No: Chest Pain Respiratory: No: Shortness of Breath Physical Exam Vital Signs Date Time Temp Pulse Resp B/P (MAP) Pulse Ox O2 Delivery O2 Flow Rate FiO2 07/03/19 08:42 83 20 95/64 (74) 96 Nasal Cannula 4.0 07/03/19 03:15 98.5 Intake and Output 07/03/19 01:04 Intake Total 268 ml Balance 268 ml Intake Oral 0 ml IV Total 268 ml # Voids 3 General Appearance: Alert, Awake, No Acute Distress, Afebrile Neuro: No Gross deficits Cardiovascular: Regular Rate and Rhythm Respiratory: No Respiratory Distress, Clear to Auscultation Extremities: No Edema Result Diagram: 07/02/1952307/02/19523 Assessment and Plan Problems: (1) Pneumonia Status: Acute Assessment & Plan: He had increased oxygen use and cough. He was found to have infiltrate on CXR. He was started on treatment with doxycycline and Rocephin. (2) Altered mental status Status: Acute Assessment & Plan: He presented with weakness and confusion. He has been to the ER 7 times since June 13. On 06/13, he given an 8 day course of prednisone and azithromycin for a COPD exacerbation. On 06/16, he had a seizure, was transiently post-ictal and then wanted to go home without further evaluation. On 06/18, he was found wandering and brought to the ER, but no abnormalities were found. On 06/20, he was found with diarrhea on his legs and a sore on his left ankle. He was sent home on Keflex for prophylactic treatment of the sore because of the soiling. He never filled the Keflex. On 06/21, he was found wandering again. He was hydrated and sent home with Keflex, again. On 06/23, he reported blood in urine and intoxication. He was sent home with a take home pack of Keflex because the left foot did look infected and the erythema was outlined with a marker. H has stated he knew he was in the hospital in [place], but has not been able to put together any more rational thoughts. Certainly, dehydration and acute infection could be contributing, but at baseline is tangential with ideas of grandeur. He has been hydrated and started on antibiotics. He is globally weak, such that he is requiring assistance just to stand. PT/OT is working with him and starting to show improvement with weakness. (3) Cellulitis of left foot Status: Acute Assessment & Plan: Left medial ankle has area of skin breakdown about 3x4cm with surrounding erythema. The erythema has receded from the boundaries drawn in on 06/23. Pt wound evaluation completed. See wound note. Covered for one week, then re-evaluate. (4) Pyuria Status: Acute Assessment & Plan: Many SCE on UA. UA on 06/21 was similar and had no growth. Cath UA on 06/29 was improved from initial UA on 06/29. Culture pending showing no growth currently. (5) Hypokalemia Assessment & Plan: Treated with K-rider and IVF with potassium added, but no longer has an IV. Will give oral supplement and continue to monitor. (6) Personality disorder, unspecified *Optional Permanent Comment*: likely narcissistic and antisocial traits that are long standing. Last Edited By: Eduardo Crespo on Oct 23, 2018 11:48 Status: Chronic Assessment & Plan: Dr. Yusuf recommends treatment with Risperdal 1mg BID. He refused his dose last night again, but took his medication without difficulty this morning. (7) AAA (abdominal aortic aneurysm) Assessment & Plan: Found on CT: The infrarenal abdominal aorta does show mild aneurysmal dilatation measuring up to 2.6 x 3.5 cm with atherosclerotic calcific changes and medial chronic thrombus. The inferior portion of the aneurysm does abut up against the IVC without focal normality. The patent lumen measures 2.2 x 1.9 cm. No periaortic inflammation or fluid. The proximal right iliac artery does show a focal aneurysmal dilatation measuring 3.1 x 3.1 cm with a patent lumen on the lateral aspect measuring 1.8 x 1.2 cm. No surrounding inflammation or fluid. The abdominal aortic aneurysm extends for approximately 4.7 cm and the right iliac aneurysm extends for approximately 3.5 cm. No other aneurysms are identified. Even though he has a mural thrombus there are not recommendations for anticoagulation because he has no evidence of embolism. He will need scheduled monitoring of the aneurysms because his aneurysm is less than 5.5cm. (8) Homelessness Status: Acute Assessment & Plan: He was evicted from his motel as he was taken by EMS. TCN to help with disposition. Exam Sepsis Risk: No Definite Risk Problem Qualifiers (1) Pneumonia: Pneumonia type: due to unspecified organism Laterality: right Lung location: lower lobe of lung Qualified Codes: J18.1 - Lobar pneumonia, unspecified organism BAKARI SHARMAP Jul 03, 2019 10:42
[2019-07-03] MEDS: POTASSIUM CHL PWDR 20 MEQ PKT PO SCH ×2 (10:52→17:00)
[2019-07-03] MEDS: ENOXAPARIN 40 MG/0.4ML SYR SC SCH (10:52)
[2019-07-03] MEDS: NYSTATIN 100,000 U/GM PWD 15GM TP SCH ×2 (10:52→20:49)
[2019-07-03] MEDS: risperiDONE 1 MG TAB PO SCH ×2 (10:52→20:49)
[2019-07-03 11:27] VITALS: BP 113/69
--- NOTE | 2019-07-03 11:40 | NUR ---
Physical Therapy Impression Pt able to perform bed mobility and transfers at SBA level and ambulate into the bathroom using RW and CGA/SBA. Pt will require 24 hour care due to decreased cognition. Physical Therapy Goals 1. SBA bed mobility. 2. SBA transfers. 3. SBA gait x 150' with appropriate assistive device. Patient's Goals
--- NOTE | 2019-07-03 13:00 | NUR ---
Speech Therapy Impression Cognitive linguistic assessment complete. See full report for detailed info. Overall, the pt continues to exhibit moderate to severe, widespread cognitive linguistic deficits. Results are very similar to those obtained in October of 2018. Recommend 24/ care with consideration of long-term placement at discharge.
--- NOTE | 2019-07-03 13:04 | SPEECH INITIAL EVALUATION ---
SPEECH THERAPY EVALUATION REPORT Cognitive Linguistic Assessment Patient Name: Joe Bacon Date of Evaluation: 07/03/2019 Patient : [birth year] Clinician: Regine Todd M.S., CCC-[employer] Treatment Dx: Moderately severe cognitive linguistic deficits BACKGROUND The patient is a 74-year-old male admitted to [facility] on 06/28/19 with confusion and weakness. The pt has presented to the ED x7 since June 13 for various reasons, including COPD exacerbation and seizures. On 06/16, the pt experienced a seizure and was transiently postictal. However, he requested to go home without further assessment. He was found wandering multiple on multiple occasions following this seizure, and was subsequently brought to the ED. He has been residing at a motel, but was reportedly informed of eviction. An ST consult was requested to analyze the pts cognition and develop appropriate recommendations for safe and successful discharge from hospital environment. Primary Medical Diagnosis: Pneumonia, AMS PMHx: Personality disorder, homelessness Pain Scale (0-10): Did not report LOC / Participation: alert, highly tangential and perseverative on biblical concepts Prior Level of Function: resides at a motel in [facility], though he was informed of eviction as EMS staff picked him up prior to most recent hospitalization. Does not appear to be caring for himself. COGNITIVE LINGUISTIC ASSESSMENT Cognitive linguistic assessment was completed at the bedside using the [place] Cognitive Assessment (MoCA) version 7.1 paired with informal evaluation procedures. Of noted, the pt previously completed an alternative MoCA assessment (version 7.2) when he was hospitalized in October of 2018. He achieved a 10/30 at that time, with deficits in attention, immediate memory, short-term memory, working memory, executive function, language, visuospatial skills The following results were obtained during the pts most recent assessment: -MoCA Total Score (TS): 12/30 = moderately severe cognitive impairment -Cognitive Domains Demonstrating Deficits: attention, short-term memory, working memory, executive function, problem solving, language, visuospatial skills -Cognitive Domains Demonstrating Strength: item naming, immediate memory, temporal orientation, environmental orientation Overall, the pt continues to exhibit moderate to severe, widespread cognitive linguistic deficits in the areas of attention, immediate memory, short-term memory, working memory, executive functions, language, and visuospatial skills. Results are very similar to those obtained in October of 2018, with possible improvements in attention and immediate recall. However, attention deficits remain significant with negative impact on attention to assessment stimuli. The pt was extremely tangential throughout encounter. He often perseverated on prior assessment tasks, and struggled to transition to new activities. This resulted in difficulty with short-term memory storage, new learning for successful problem-solving skills, and ability to plan/think prospectively. Despite significant areas of impairment, the pt was generally oriented to temporal and environmental concepts with emerging orientation to current situation. Altered mental status is evident, with further influence of personality disorder and likely contribution of COPD/hypoxia paired with urinary tract infection. [employer] will continue to analyze cognitive linguistic status; however, suspect this patient is close to his baseline. Skilled interventions will be initiated in an acute care environment to support attention to and comprehension of information re: medical plan of care. RECOMMENDATIONS 1. ST 3x/wk 2. 07/06 care at discharge, with consideration of long-term placement. REHAB PROGNOSIS: Fair. ST POC 1. Pt will recall 2/2 items embedded within a functional activity when provided with mod verbal cues and access to external visual aides to compensate for short-term memory deficits and support retention of information re: medical POC. 2. Pt will sustain attention during completion of functional activities for 2 minute intervals when provided with mod cues to minimize tangential insertions and promote purposeful participation in daily routine. Thank you for this referral. Please call [phone] Regine Todd M.S., [facility] [*] COURTNEY
--- NOTE | 2019-07-03 14:41 | Miscellaneous Provider Note ---
Miscellaneous Provider Note Note Speech therapist completed cognitive evaluation. Patient scored 12/30 on the MOCA exam. At this time, patient lacks capacity to make his own medical decisions. We will attempt to contact family of the patient to appoint for decision making. BAKARI SHARMA [facility] Jul 03, 2019 14:41
[2019-07-03] MEDS: cefTRIAXone(*) 1 GM VIAL 1 GM in WATER STERILE(*) 10 ML VIAL 10 ML IVP SCH (17:00)
[2019-07-03] MEDS: ACETAMINOPHEN 325 MG TAB PO PRN (18:40)
[2019-07-03 21:01] VITALS: BP 103/66
[2019-07-04 03:32] VITALS: BP 118/85
[2019-07-04] MEDS: DOXYCYCLINE HYCL 100 MG VIAL 100 MG in NS(*) 0.9% 250 ML BAG 250 ML IV SCH ×2 (05:15→17:40)
[2019-07-04] MEDS: ALBUTEROL/IPRATROPIUM 3 ML NEB NEB SCH ×3 (05:39→18:02)
[2019-07-04 06:40] LABS: PLATELET COUNT, AUTOMATED 168 K/uL (150-450)
[2019-07-04 06:49] VITALS: BP 121/79
[2019-07-04] MEDS: ENOXAPARIN 40 MG/0.4ML SYR SC SCH (08:20)
[2019-07-04] MEDS: risperiDONE 1 MG TAB PO SCH ×2 (08:20→21:40)
[2019-07-04] MEDS: POTASSIUM CHL PWDR 20 MEQ PKT PO SCH ×2 (08:20→16:35)
[2019-07-04] MEDS: NYSTATIN 100,000 U/GM PWD 15GM TP SCH ×2 (08:21→21:00)
--- NOTE | 2019-07-04 09:18 | Hospitalist Progress Note ---
Subjective Progress Notes Subjective He is being treated for pneumonia. He has been confused overnight to situation. Patient Complains of: Cardiovascular: No: Chest Pain Respiratory: No: Shortness of Breath Physical Exam Vital Signs Date Time Temp Pulse Resp B/P (MAP) Pulse Ox O2 Delivery O2 Flow Rate FiO2 07/04/19 06:49 98.4 101 16 121/79 (93) 91 Nasal Cannula 4.0 Intake and Output 07/04/19 01:04 Intake Total 0 ml Balance 0 ml Intake Oral 0 ml # Voids 3 # Bowel Movements 1 General Appearance: Alert, Awake Cardiovascular: Regular Rate and Rhythm Respiratory: No Respiratory Distress, Clear to Auscultation Extremities: Warm, Perfused; No Edema Psych: Other (confused to situation) Result Diagram: 07/04/1960107/04/19601 Assessment and Plan Problems: (1) Pneumonia Status: Acute Assessment & Plan: He had increased oxygen use and cough. He was found to have infiltrate on CXR. He was started on treatment with doxycycline and Rocephin. (2) Altered mental status Status: Acute Assessment & Plan: He presented with weakness and confusion. He has been to the ER 7 times since June 13. On 06/13, he given an 8 day course of prednisone and azithromycin for a COPD exacerbation. On 06/16, he had a seizure, was transiently post-ictal and then wanted to go home without further evaluation. On 06/18, he was found wandering and brought to the ER, but no abnormalities were found. On 06/20, he was found with diarrhea on his legs and a sore on his left ankle. He was sent home on Keflex for prophylactic treatment of the sore because of the soiling. He never filled the Keflex. On 06/21, he was found wandering again. He was hydrated and sent home with Keflex, again. On 06/23, he reported blood in urine and intoxication. He was sent home with a take home pack of Keflex because the left foot did look infected and the erythema was outl ined with a marker. H has stated he knew he was in the hospital in [place], but has not been able to put together any more rational thoughts. Certainly, dehydration and acute infection could be contributing, but at baseline is tangential with ideas of grandeur. He has been hydrated and started on antibiotics. He is globally weak, such that he is requiring assistance just to stand. PT/OT is working with him and starting to show improvement with weakness. Speech therapist completed cognitive evaluation. Patient scored 12/30 on the MOCA exam. At this time, patient lacks capacity to make his own medical decisions. We have appointed Cedric Bullard to be his person to make decisions for the patient. Cedric Bullard is willing to help make decisions for patient. (3) Cellulitis of left foot Status: Acute Assessment & Plan: Left medial ankle has area of skin breakdown about 3x4cm with surrounding erythema. The erythema has receded from the boundaries drawn in on 06/23. Pt wound evaluation completed. See wound note. Covered for one week, then re-evaluate. (4) Pyuria Status: Acute Assessment & Plan: Many SCE on UA. UA on 06/21 was similar and had no growth. Cath UA on 06/29 was improved from initial UA on 06/29. Culture pending showing no growth currently. (5) Hypokalemia Assessment & Plan: Treated with K-rider and IVF with potassium added, but no longer has an IV. Will give oral supplement and continue to monitor. (6) Personality disorder, unspecified *Optional Permanent Comment*: likely narcissistic and antisocial traits that are long standing. Last Edited By: Eduardo Crespo on Oct 23, 2018 11:48 Status: Chronic Assessment & Plan: Dr. Yusuf recommends treatment with Risperdal 1mg BID. (7) AAA (abdominal aortic aneurysm) Assessment & Plan: Found on CT: The infrarenal abdominal aorta does show mild aneurysmal dilatation measuring up to 2.6 x 3.5 cm with atherosclerotic calcific changes and medial chronic thrombus. The inferior portion of the aneurysm does abut up against the IVC without focal normality. The patent lumen measures 2.2 x 1.9 cm. No periaortic inflammation or fluid. The proximal right iliac artery does show a focal aneurysmal dilatation measuring 3.1 x 3.1 cm with a patent lumen on the lateral aspect measuring 1.8 x 1.2 cm. No surrounding inflammation or fluid. The abdominal aortic aneurysm extends for approximately 4.7 cm and the right iliac aneurysm extends for approximately 3.5 cm. No other aneurysms are identified. Even though he has a mural thrombus there are not recommendations for anticoagulation because he has no evidence of embolism. He will need scheduled monitoring of the aneurysms because his aneurysm is less than 5.5cm. (8) Homelessness Status: Acute Assessment & Plan: He was evicted from his motel as he was taken by EMS. TCN to help with disposition. Exam Sepsis Risk: No Definite Risk Problem Qualifiers (1) Pneumonia: Pneumonia type: due to unspecified organism Laterality: right Lung location: lower lobe of lung Qualified Codes: J18.1 - Lobar pneumonia, unspecified organism BAKARI SHARMA Jul 04, 2019 09:18
--- NOTE | 2019-07-04 10:20 | NUR ---
Physical Therapy Impression Attempted to see Pt for PT tx. Pt with verbalizations not consistent with context of situation. Pt unable to be re-directed for meaningful participation in therapy session. Noted Pt's clothing, brief, and bedding saturated with urine. Notified nursing. Physical Therapy Goals 1. SBA bed mobility. 2. SBA transfers. 3. SBA gait x 150' with appropriate assistive device. Patient's Goals
--- NOTE | 2019-07-04 11:14 | NUR ---
Speech Therapy Impression Cog/lang interventions focused on attempting to engage pt's attention for participation in purposeful activities or conversation. Pt perseveratively played with items on breakfast tray, unable to redirect. 100% of verbal responses were irrelevant or tangential. Discussed performance w/ RN. Cont to recommend 24/7 care with consideration of long-term placement at discharge.
--- NOTE | 2019-07-04 12:30 | Medical Nutrition Therapy ---
Nutrition Anthropometrics Weight (Pounds): 164 Weight (Calculated Kilograms): 74.389 Hx Weight Loss: Yes (Lost around 57 lbs between 06/16-06/30. Went from 99.79 kg to 74 kg. ) Adin Nutrition Score: Probably Inadequate Adin Nutrition Risk Score: 15 Dietary Referral Nutrition Risk Factors: Unplanned Loss >10lbs Nutrition Risk Comment: Physical Findings Physical Appearance: Skin Appearance Skin Appearance: Edema Edema Location Modifier: Edema Location: Type of Edema: Degree of Edema: Gastrointestinal Symptoms GI Symtoms: Constipation Tube Present: Bowel Sounds: Recent Bowel Pattern: Stool Characteristics: Nutrition/Food History Good Nutritional Diagnosis Nutritional Risk Acuity 2: Unintended Wt Loss >5%/mo Past Medical History: COPD exacerbation, alcohol abuse, substance abuse Nutritional Acuity: 2-Moderate Nutrition Diagnosis: Involuntary Wt. Loss Nutrition Etiology: Inability Manage SelfCare Nutrition Problem/Etiology/Sym: AEB weight loss of around 57 pounds beween June 16-June 30 Adjusted Energy Requirement Re: 1850 (25kcal/g/day) Protein Requirement: 75 (1g/kg/day) Fluid Requirement: 1850 (1850-2220ml (25-30ml/kg/day)) Diet Type: Diet as Tolerated ZACKARY/REG Nutrition Intervention: Cont diet as ordered, Encourage intake, Between meal supplement Diet Comment To RSA: Offer supplement (ensure or mighty shake) Nutrition Monitoring & Eval Nutrition Goals: Eat 75-100% Meal Nutrition Follow-Up: Fair Intake Nutrition Monitoring: intake, need new weight RD Patient Assessment Time: [address] Assessment Type: RD Re-Assessment Patient Nutrition Acuity: 2-Moderate Follow Up Date: Jul 07, 2019 Nutritional Comment: 06/30/2019: According to H&P, pt has been to ER 7 times since June 13. He was picked up by EMS for confusion and weaknes, and according to the report, the motel said he was no longer allowed to stay there. He is now homeless. Between the visit during June 16, and today, he went from 99.79 kg to 74 kg with a loss of around 25.7 kg (57 lbs.). Will perform Nutrition Focused Physical Exam to assess for potential malnutrition. Recommend supplements to help manage further weight loss. Will obtain height in order to calculate BMI. Laboratory values indicate: low hemoglobin of 13.1, low hct of 39.1, low sodium of 134, low potassium of 3, high LFT, and low albumin of 3.1. Pt was diagnosed by MD with altered mental status, cellulitis, pyuria, AAA, homelessness and personality disorder. Visited with pt to discuss weight loss, and he reported that the weight loss was needed. Pt claims that he typically has a great appetite and "eats like a horse." Pt started to discuss family history, but was difficult to understand. Will continue to monitor intake, weight loss, and laboratory values. - BB 07/04: Pt continues on diet as tolerated, eating 79% average intake with multiple meal refusals. Not consuming supplements consistently. Pt found to have PNA, currently recieving doxycycline, recommend adding probiotic. Will continue to monitor intake, would like to get a new weight, and will continue to offer oral nutrition supplements to help meet energy needs.RITU MOBLEY Jul 04, 2019 12:30
[2019-07-04 15:04] VITALS: BP 105/78
[2019-07-04] MEDS: cefTRIAXone(*) 1 GM VIAL 1 GM in WATER STERILE(*) 10 ML VIAL 10 ML IVP SCH (16:35)
[2019-07-04 20:11] VITALS: BP 122/75
[2019-07-04] MEDS: DOXYCYCLINE HYCL 100 MG TAB PO SCH (23:05)
[2019-07-05 05:03] VITALS: BP 125/81
[2019-07-05] MEDS: ALBUTEROL/IPRATROPIUM 3 ML NEB NEB SCH (05:42)
[2019-07-05 07:40] VITALS: BP 118/79
[2019-07-05] MEDS: NYSTATIN 100,000 U/GM PWD 15GM TP SCH ×2 (09:00→20:39)
--- NOTE | 2019-07-05 09:00 | NUR ---
Physical Therapy Impression Bed Mobility SBA. Transfer from toilet to stand CGA and min A for balance while nursing was wiping patient. Patient instructed in gait training with FWW ~130 feet with CGA to min A with turns and max cuing verbal and tactile to avoid objects and with turning. Patient is very unstead and at increased ROF due to cognitive status. Patient left in bed with call light rails up and oxygen on at 93%. Pt notes that L) medial ankle is tender to touch but is agreeable to cleansing. Pt recently showered and wound is currently open to air. Pt would benefit from a padded dressing for absorption and protection while wound is maintained with a moist healing environment. No selective, sharps debridement currently indicated. PT applied skin prep to periwound skin for improved adhesiveness. Silicone border 6x6 dressing to cover open wound. This is to be left in place for up to one week in order to optimize wound healing temperature and facilitate moist wound bed healing. Nrsg may change sooner if dressing becomes contaminated, overly saturated or dislodged. Additional dressing left in room. Physical Therapy Goals 1. SBA bed mobility. 2. SBA transfers. 3. SBA gait x 150' with appropriate assistive device. Patient's Goals
[2019-07-05] MEDS: risperiDONE 1 MG TAB PO SCH ×2 (09:27→20:38)
[2019-07-05] MEDS: ENOXAPARIN 40 MG/0.4ML SYR SC SCH (09:28)
[2019-07-05] MEDS: DOXYCYCLINE HYCL 100 MG TAB PO SCH ×2 (09:28→20:38)
--- NOTE | 2019-07-05 10:08 | Hospitalist Progress Note ---
Subjective Progress Notes Subjective He was admitted with weakness. He is up walking in his room this morning, reciting bible verses. He denies any complaints. Patient Complains of: Cardiovascular: No: Chest Pain Respiratory: No: Shortness of Breath Physical Exam Vital Signs Date Time Temp Pulse Resp B/P (MAP) Pulse Ox O2 Delivery O2 Flow Rate FiO2 07/05/19 07:40 97.7 16 118/79 (92) 92 Nasal Cannula 3.5 07/05/19 05:43 101 Intake and Output 07/05/19 07:04 Intake Total 880 ml Balance 880 ml Intake Oral 880 ml # Voids 4 # Bowel Movements 1 General Appearance: Alert, Awake, Afebrile Neuro: No Gross deficits Cardiovascular: Regular Rate and Rhythm Respiratory: No Respiratory Distress, Other (diminished lung bases) GI: Soft and Non-Tender Extremities: Warm, Perfused; No Edema Psych: Other (reciting bible verses, appears confused) Result Diagram: 07/04/1960107/04/19601 Assessment and Plan Problems: (1) Pneumonia Status: Acute Assessment & Plan: He had increased oxygen use and cough. He was found to have infiltrate on CXR. He was started on treatment with IV doxycycline and Rocephin. He will now be transitioned to Omnicef and oral Doxycycline. (2) Altered mental status Status: Acute Assessment & Plan: He presented with weakness and confusion. He has been to the ER 7 times since June 13. On 06/13, he given an 8 day course of prednisone and azithromycin for a COPD exacerbation. On 06/16, he had a seizure, was transiently post-ictal and then wanted to go home without further evaluation. On 06/18, he was found wandering and brought to the ER, but no abnormalities were found. On 06/20, he was found with diarrhea on his legs and a sore on his left ankle. He was sent home on Keflex for prophylactic treatment of the sore because of the soiling. He never filled the Keflex. On 06/21, he was found wandering again. He was hydrated and sent home with Keflex, again. On 06/23, he reported blood in urine and intoxication. He was sent home with a take home pack of Keflex because the left foot did look infected and the erythema was outlined with a marker. H has stated he knew he was in the hospital in [place], but has not been able to put together any more rational thoughts. Certainly, dehydration and acute infection could be contributing, but at baseline is tangential with ideas of grandeur. He has been hydrated and started on antibiotics. He is globally weak , such that he is requiring assistance just to stand. PT/OT is working with him and starting to show improvement with weakness. Speech therapist completed cognitive evaluation. Patient scored 12/30 on the MOCA exam. At this time, patient lacks capacity to make his own medical decisions. We have appointed Cedric Bullard to be his person to make decisions for the patient. Cedric Bullard is willing to help make decisions for patient. (3) Cellulitis of left foot Status: Acute Assessment & Plan: Left medial ankle has area of skin breakdown about 3x4cm with surrounding erythema. The erythema has receded from the boundaries drawn in on 06/23. Pt wound evaluation completed. See wound note. Covered for one week, then re-evaluate. (4) Pyuria Status: Acute Assessment & Plan: Many SCE on UA. UA on 06/21 was similar and had no growth. Cath UA on 06/29 was improved from initial UA on 06/29. Culture pending showing no growth currently. (5) Hypokalemia Assessment & Plan: Resolved. Treated with K-rider and IVF with potassium added, but no longer has an IV. He was given oral supplement, but will discontinue now and continue to monitor. (6) Personality disorder, unspecified *Optional Permanent Comment*: likely narcissistic and antisocial traits that are long standing. Last Edited By: Eduardo Crespo on Oct 23, 2018 11:48 Status: Chronic Assessment & Plan: Dr. Yusuf recommends treatment with Risperdal 1mg BID. (7) AAA (abdominal aortic aneurysm) Assessment & Plan: Found on CT: The infrarenal abdominal aorta does show mild aneurysmal dilatation measuring up to 2.6 x 3.5 cm with atherosclerotic calcific changes and medial chronic thrombus. The inferior portion of the aneurysm does abut up against the IVC without focal normality. The patent lumen measures 2.2 x 1.9 cm. No periaortic inflammation or fluid. The proximal right iliac artery does show a focal aneurysmal dilatation measuring 3.1 x 3.1 cm with a patent lumen on the lateral aspect measuring 1.8 x 1.2 cm. No surrounding inflammation or fluid. The abdominal aortic aneurysm extends for approximately 4.7 cm and the right iliac aneurysm extends for approximately 3.5 cm. No other aneurysms are id entified. Even though he has a mural thrombus there are not recommendations for anticoa gulation because he has no evidence of embolism. He will need scheduled monitoring of the aneurysms because his aneurysm is less than 5.5cm. (8) Homelessness Status: Acute Assessment & Plan: He was evicted from his motel as he was taken by EMS. TCN to help with disposition. Exam Sepsis Risk: No Definite Risk Problem Qualifiers (1) Pneumonia: Pneumonia type: due to unspecified organism Laterality: right Lung location: lower lobe of lung Qualified Codes: J18.1 - Lobar pneumonia, unspecified organism BAKARI SHARMA LIME PULLER Jul 05, 2019 10:08
[2019-07-05 19:56] VITALS: BP 98/66
[2019-07-05] MEDS: CEFDINIR 300 MG CAP PO SCH (20:38)
[2019-07-05 23:30] VITALS: BP 91/51
--- NOTE | 2019-07-06 08:41 | NUR ---
Physical Therapy Impression Pt with slight improvement in tolerance to functional mobility today. Continues to be tangential with all conversations. SBA for bed mobility and transfers with Rw. Ambulation x150' with Rw and CGA and verbal cues for path finding. Pt required one standing rest break during ambulation. SpO2 WNL on 3L O2. Continue to rec. 24 hr care. Physical Therapy Goals 1. SBA bed mobility. 2. SBA transfers. 3. SBA gait x 150' with appropriate assistive device. Patient's Goals
[2019-07-06 09:06] VITALS: BP 94/65
[2019-07-06] MEDS: CEFDINIR 300 MG CAP PO SCH ×2 (09:26→20:34)
[2019-07-06] MEDS: ENOXAPARIN 40 MG/0.4ML SYR SC SCH (09:27)
[2019-07-06] MEDS: DOXYCYCLINE HYCL 100 MG TAB PO SCH ×2 (09:27→20:34)
[2019-07-06] MEDS: risperiDONE 1 MG TAB PO SCH ×2 (09:27→20:34)
--- NOTE | 2019-07-06 09:52 | Hospitalist Progress Note ---
Subjective Progress Notes Subjective No acute events overnight. He was able to verbalize place and year this morning, but all other conversation was disoriented or disjointed from reality. Patient Complains of: Neurological: Confusion; No: Syncope Cardiovascular: No: Chest Pain, Palpitations Respiratory: No: Congestion, Shortness of Breath Physical Exam Vital Signs Date Time Temp Pulse Resp B/P (MAP) Pulse Ox O2 Delivery O2 Flow Rate FiO2 07/06/19 07:30 86 07/05/19 23:30 98.0 98 20 91/51 (64) Nasal Cannula 4.0 Intake and Output 07/06/19 01:04 Intake Total 460 ml Balance 460 ml Intake Oral 460 ml # Voids 5 # Bowel Movements 1 General Appearance: Awake Cardiovascular: Regular Rate and Rhythm Respiratory: No Respiratory Distress Psych: Appropriate Mood & Affect, Other (Oriented to place and year only. ) Result Diagram: 07/04/1960107/04/19601 Assessment and Plan Problems: (1) Pneumonia Status: Acute Assessment & Plan: He had increased oxygen demand and a cough. He was found to have an infiltrate on CXR. He was started on treatment with IV doxycycline and Rocephin. He will now be transitioned to Omnicef and oral Doxycycline. He remains on Oxygen, however his cough seems to be improving. (2) Altered mental status Status: Acute Assessment & Plan: He presented with weakness and confusion. He has been to the ER 7 times since June 13. On 06/13, he given an 8 day course of prednisone and azithromycin for a COPD exacerbation. On 06/16, he had a seizure, was transiently post-ictal and then wanted to go home without further evaluation. On 06/18, he was found wandering and brought to the ER, but no abnormalities were found. On 06/20, he was found with diarrhea on his legs and a sore on his left ankle. He was sent home on Keflex for prophylactic treatment of the sore because of the soiling. He never filled the Keflex. On 06/21, he was found wandering again. He was hydrated and sent home with Keflex, again. On 06/23, he reported blood in urine and intoxication. He was sent home with a take home pack of Keflex because the left foot did look infected and the erythema was outlined with a marker. He has stated he is in the hospital in [place] and knew the correct year, but has not been able to put together any more rational thoughts. Certainly, dehydration and acute infection could be contributing, but at baseline is tangential with ideas of grandeur. He has been hydrated and started on antibiotics. He is globally weak, such that he is requiring assistance just to stand. PT/OT is working with him and starting to show improvement with weakness. Speech therapist completed cognitive evaluation. Patient scored 12/30 on the MOCA exam. At this time, patient lacks capacity to make his own medical decisions. We have appointed Cedric Bullard to be his person to make decisions for the patient. Cedric Bullard is willing to help make decisions for patient. (3) Cellulitis of left foot Status: Acute Assessment & Plan: Left medial ankle has area of skin breakdown about 3x4cm with surrounding erythema. The erythema has receded from the boundaries drawn in on 06/23. Pt wound evaluation completed. See wound note. Covered for one week, then re-evaluate. (4) Pyuria Status: Acute Assessment & Plan: Many SCE on UA. UA on 06/21 was similar and had no growth. Cath UA on 06/29 was improved from initial UA on 06/29. Culture finalized with no growth. (5) Hypokalemia Assessment & Plan: Resolved. Treated with K-rider and IVF with potassium added, but no longer has an IV. He was given oral supplement, but will discontinue now and continue to monitor. (6) Personality disorder, unspecified *Optional Permanent Comment*: likely narcissistic and antisocial traits that are long standing. Last Edited By: Eduardo Crespo on Oct 23, 2018 11:48 Status: Chronic Assessment & Plan: Dr. Yusuf recommends treatment with Risperdal 1mg BID. (7) AAA (abdominal aortic aneurysm) Assessment & Plan: Found on CT: The infrarenal abdominal aorta does show mild aneurysmal dilatation measuring up to 2.6 x 3.5 cm with atherosclerotic calcific changes and medial chronic thrombus. The inferior portion of the aneurysm does abut up against the IVC without focal normality. The patent lumen measures 2.2 x 1.9 cm. No periaortic inflammation or fluid. The proximal right iliac artery does show a focal aneurysmal dilatation measuring 3.1 x 3.1 cm with a patent lumen on the lateral aspect measuring 1.8 x 1.2 cm. No surrounding inflammation or fluid. The abdominal aortic aneurysm extends for approximately 4.7 cm and the right iliac aneurysm extends for approximately 3.5 cm. No other aneurysms are identified. Even though he has a mural thrombus there are not recommendations for anticoagulation because he has no evidence of embolism. He will need scheduled monitoring of the aneurysms because his aneurysm is less than 5.5cm. (8) Homelessness Status: Acute Assessment & Plan: He was evicted from his motel as he was taken by EMS. TCN to help with disposition. [place] Medicaid paperwork has been filed, and NH placement options is being explored. Exam Sepsis Risk: No Definite Risk Problem Qualifiers (1) Pneumonia: Pneumonia type: due to unspecified organism Laterality: right Lung location: lower lobe of lung Qualified Codes: J18.1 - Lobar pneumonia, unspecified organism HAI FAUST Jul 06, 2019 09:52
[2019-07-06] MEDS: NYSTATIN 100,000 U/GM PWD 15GM TP SCH ×2 (10:54→20:34)
--- NOTE | 2019-07-06 12:05 | NUR ---
Speech Therapy Impression Cog/lang interventions cont w/ focus on engaging pt participation in purposeful activities or conversation. Pt w/ significant improvement vs prior encounter, including participation in functional sorting/organization tasks for 1 min intervals with mod assist for redirection from tangential insertions. Verbalizations remain irrelevant, perseverative, and/or tangential, but with improved response to strategies for redirection despite lack of self-monitoring skills. Will continue POC. Rec 07/06 care with consideration of long-term placement at discharge. Per chart review and discussion w/ staff, placement is pending.
[2019-07-06 14:53] VITALS: BP 88/64
[2019-07-06 15:03] VITALS: BP 94/60
[2019-07-06 20:10] VITALS: BP 103/69
--- NOTE | 2019-07-07 08:51 | NUR ---
Physical Therapy Impression Pt has met PT goals and is likely nearing his baseline level of functional mobility. SBA for bed mobility, transfers and ambulation x150' with RW and cues for safety. Rec that pt continue to ambulate with nursing staff. Rec 24 hr care upon d/c. No further PT visits planned at this time. Physical Therapy Goals 1. SBA bed mobility. 2. SBA transfers. 3. SBA gait x 150' with appropriate assistive device. Patient's Goals
--- NOTE | 2019-07-07 08:53 | Hospitalist Progress Note ---
Subjective Progress Notes Subjective No acute events overnight. He stated that he slept well. No complaints of pain or discomfort. Patient Complains of: Neurological: No: Weakness Cardiovascular: No: Chest Pain, Palpitations Respiratory: No: Congestion, Shortness of Breath Gastrointestinal: No Nausea Musculoskeletal: No: Pain Physical Exam Vital Signs Date Time Temp Pulse Resp B/P (MAP) Pulse Ox O2 Delivery O2 Flow Rate FiO2 07/07/19 02:18 83 07/07/19 02:18 Nasal Cannula 3.5 07/06/19 20:10 97.6 108 16 103/69 (80) Intake and Output 07/07/19 07:04 Intake Total 1010 ml Output Total 175 ml Balance 835 ml Intake Oral 1010 ml Output Urine Total 175 ml # Voids 5 General Appearance: Awake Cardiovascular: Regular Rate and Rhythm Respiratory: No Respiratory Distress Psych: Alert & Oriented X3, Appropriate Mood & Affect Result Diagram: 07/04/1960107/04/19601 Assessment and Plan Problems: (1) Pneumonia Status: Acute Assessment & Plan: He had increased oxygen demand and a cough. He was found to have an infiltrate on CXR. He was started on treatment with IV doxycycline and Rocephin. He will now be transitioned to Omnicef and oral Doxycycline. He remains on Oxygen, however his cough seems to be improving. (2) Altered mental status Status: Acute Assessment & Plan: He presented with weakness and confusion. He has been to the ER 7 times since June 13. On 06/13, he given an 8 day course of prednisone and azithromycin for a COPD exacerbation. On 06/16, he had a seizure, was transiently post-ictal and then wanted to go home without further evaluation. On 06/18, he was found wandering and brought to the ER, but no abnormalities were found. On 06/20, he was found with diarrhea on his legs and a sore on his left ankle. He was sent home on Keflex for prophylactic treatment of the sore because of the soiling. He never filled the Keflex. On 06/21, he was found wan dering again. He was hydrated and sent home with Keflex, again. On 06/23, he reported blood in urine and intoxication. He was sent home with a take home pack of Keflex because the left foot did look infected and the erythema was outlined with a marker. He is still oriented to self and year. This morning he was discussing living and working with his father, and was fixated on his grandmothers . He has not been able to put together any more rational thoughts. Certainly, dehydration and acute infection could be contributing, but at baseline is tangential with ideas of grandeur. He has been hydrated and started on antibiotics. He is globally weak, such that he is requiring assistance just to stand. PT/OT is working with him and starting to show improvement with weakness. Speech therapist completed cognitive evaluation. Patient scored 12/30 on the MOCA exam. At this time, patient lacks capacity to make his own medical decisions. We have appointed Cedric Bullard to be his person to make decisions for the patient. Cedric Bullard is willing to help make decisions for patient. (3) Cellulitis of left foot Status: Acute Assessment & Plan: Left medial ankle has area of skin breakdown about 3x4cm with surrounding erythema. The erythema has receded from the boundaries drawn in on 06/23. Pt wound evaluation completed. See wound note. Covered for one week, then re-evaluate. (4) Pyuria Status: Acute Assessment & Plan: Many SCE on UA. UA on 06/21 was similar and had no growth. Cath UA on 06/29 was improved from initial UA on 06/29. Culture finalized with no growth. (5) Hypokalemia Assessment & Plan: Resolved. Treated with K-rider and IVF with potassium added, but no longer has an IV. He was given oral supplement, but will discontinue now and continue to monitor. (6) Personality disorder, unspecified *Optional Permanent Comment*: likely narcissistic and antisocial traits that are long standing. Last Edited By: Eduardo Crespo on Oct 23, 2018 11:48 Status: Chronic Assessment & Plan: Dr. Yusuf recommends treatment with Risperdal 1mg BID. (7) AAA (abdominal aortic aneurysm) Assessment & Plan: Found on CT: The infrarenal abdominal aorta does show mild aneurysmal dilatation measuring up to 2.6 x 3.5 cm with atherosclerotic calcific changes and medial chronic thrombus. The inferior portion of the aneurysm does abut up against the IVC without focal normality. The patent lumen measures 2.2 x 1.9 cm. No periaortic inflammation or fluid. The proximal right iliac artery does show a focal aneurysmal dilatation measuring 3.1 x 3.1 cm with a patent lumen on the lateral aspect measuring 1.8 x 1.2 cm. No surrounding inflammation or fluid. The abdominal aortic aneurysm extends for approximately 4.7 cm and the right iliac aneurysm extends for approximately 3.5 cm. No other aneurysms are identified. Even though he has a mural thrombus there are not recommendations for anticoagulation because he has no evidence of embolism. He will need scheduled monitoring of the aneurysms because his aneurysm is less than 5.5cm. (8) Homelessness Status: Acute Assessment & Plan: He was evicted from his motel as he was taken by EMS. TCN to help with disposition. [place] Medicaid paperwork has been filed, and NH placement options is being explored. Guardian agrees with NH placement. Exam Sepsis Risk: No Definite Risk Problem Qualifiers (1) Pneumonia: Pneumonia type: due to unspecified organism Laterality: right Lung location: lower lobe of lung Qualified Codes: J18.1 - Lobar pneumonia, unspecified orga HAI Muniz Jul 07, 2019 08:53
[2019-07-07] MEDS: NYSTATIN 100,000 U/GM PWD 15GM TP SCH ×2 (09:31→20:57)
[2019-07-07] MEDS: CEFDINIR 300 MG CAP PO SCH ×2 (09:31→20:57)
[2019-07-07] MEDS: DOXYCYCLINE HYCL 100 MG TAB PO SCH ×2 (09:31→20:57)
[2019-07-07] MEDS: risperiDONE 1 MG TAB PO SCH ×2 (09:31→20:57)
[2019-07-07] MEDS: ENOXAPARIN 40 MG/0.4ML SYR SC SCH (09:31)
--- NOTE | 2019-07-07 14:11 | Medical Nutrition Therapy ---
Nutrition Anthropometrics Weight (Pounds): 164 Weight (Calculated Kilograms): 74.389 Hx Weight Loss: Yes (Lost around 57 lbs between 06/16-06/30. Went from 99.79 kg to 74 kg. ) Adin Nutrition Score: Adequate Adin Nutrition Risk Score: 16 Dietary Referral Nutrition Risk Factors: Unplanned Loss >10lbs Nutrition Risk Comment: Physical Findings Physical Appearance: Skin Appearance Skin Appearance: Edema Edema Location Modifier: Edema Location: Type of Edema: Degree of Edema: Gastrointestinal Symptoms GI Symtoms: Diarrhea Tube Present: Bowel Sounds: Recent Bowel Pattern: Stool Characteristics: Nutritional Diagnosis Nutritional Risk Acuity 2: Unintended Wt Loss >5%/mo Past Medical History: COPD exacerbation, alcohol abuse, substance abuse Nutritional Acuity: 2-Moderate Nutrition Diagnosis: Involuntary Wt. Loss Nutrition Etiology: Inability Manage SelfCare Nutrition Problem/Etiology/Sym: AEB weight loss of around 57 pounds beween June 16-June 30 Adjusted Energy Requirement Re: 1850 (25kcal/g/day) Protein Requirement: 75 (1g/kg/day) Fluid Requirement: 1850 (1850-2220ml (25-30ml/kg/day)) Diet Type: Diet as Tolerated ZACKARY/REG Nutrition Intervention: Cont diet as ordered, Encourage intake, Between meal supplement Diet Comment To RSA: Offer supplement (ensure or mighty shake) Nutrition Monitoring & Eval Nutrition Follow-Up: Good Intake Nutrition Monitoring: Intake, Weight RD Patient Assessment Time: [address] Assessment Type: RD Re-Assessment Patient Nutrition Acuity: 2-Moderate Follow Up Date: Jul 12, 2019 Nutritional Comment: 06/30/2019: According to H&P, pt has been to ER 7 times since June 13. He was picked up by EMS for confusion and weaknes, and according to the report, the motel said he was no longer allowed to stay there. He is now homeless. Between the visit during June 16, and today, he went from 99.79 kg to 74 kg with a loss of around 25.7 kg (57 lbs.). Will perform Nutrition Focused Physical Exam to assess for potential malnutrition. Recommend supplements to help manage further weight loss. Will obtain height in order to calculate BMI. Laboratory values indicate: low hemoglobin of 13.1, low hct of 39.1, low sodium of 134, low potassium of 3, high LFT, and low albumin of 3.1. Pt was diagnosed by with altered mental status, cellulitis, pyuria, AAA, homelessness and personality disorder. Visited with pt to discuss weight loss, and he reported that the weight loss was needed. Pt claims that he typically has a great appetite and "eats like a horse." Pt started to discuss family history, but was difficult to understand. Will continue to monitor intake, weight loss, and laboratory values. - BB 07/04: Pt continues on diet as tolerated, eating 79% average intake with multiple meal refusals. Not consuming supplements consistently. Pt found to have PNA, currently recieving doxycycline, recommend adding probiotic. Will continue to monitor intake, would like to get a new weight, and will continue to offer oral nutrition supplements to help meet energy needs.RYAN 07/07: Pt appetite improving, eating 95% of meals, but has also skipped 3 meals as well. Will continue to offer oral nutrition supplements given severity of weight loss. Will continue to follow.RITU MOBLEY Jul 07, 2019 14:11
[2019-07-07 15:38] VITALS: BP 94/63
--- NOTE | 2019-07-07 16:43 | NUR ---
Dressing not changed d/t mepilex, CDI, and per PT note to change Q6 days. Addendum: 07/07/19 at 1643 by BOB TREVIÑO RN Amended: Links added.
[2019-07-07 18:10] VITALS: BP 104/61
== END 2019-07-08 00:01 | disposition still patient (30) | DRG 951 ==
LOC: ER 11:27 → MED 17:09
PROVIDERS: ADMIT Internal Medicine; ATTEND Internal Medicine
DX: Z02.9 Encounter for administrative examinations, unspecified (principal)
CPT/HCPCS: 36415; 36416; 70450; 71045; 74177; 80305; 80320; 80329; 81001; 82040; 82140; 82247; 82310; 82374; 82435; 82565; 82947; 82948; 83605; 83735; 84075; 84132; 84155; 84295; 84443; 84450; 84460; 84484; 84520; 85025; 87040; 87088; 92523; 93005; 94640; 97161; 97162; A4216; J0696; J1650; J3480; J3490; J7030; J7040; J7050; J7613; Q9967

== ENCOUNTER → 2019-06-29 | Outpatient (CLI) | payer MEDICARE | LOC: AMB 11:02 | PROVIDERS: ATTEND Nurse Practitioner | DX: R53.1 Weakness (principal); R40.4 Transient alteration of awareness; R09.02 Hypoxemia | CPT/HCPCS: A0425; A0427 ==